=== PATIENT | female | born 1960 | race Caucasian/White ===

== ENCOUNTER 2020-01-07 07:05 | Outpatient (CLI) | payer SELFPAY | END 2020-01-07 07:06 | disposition EMS.NT | LOC: EMS 07:05 | PROVIDERS: ATTEND Surgery | DX: R13.10 Dysphagia, unspecified (principal) ==

== ENCOUNTER 2021-01-27 09:11 | Outpatient (CLI) | payer BC | END 2021-01-27 09:12 | disposition critical access hospital (66) | LOC: EMS 09:11 | DX: R11.0 Nausea (principal); R27.0 Ataxia, unspecified | CPT/HCPCS: A0425; A0429 ==

== ENCOUNTER 2021-01-27 09:53 | Emergency (ER) | payer BC ==
--- NOTE | 2021-01-27 10:47 | CT Report ---
PROCEDURE: HEAD WO INDICATIONS: nausea, headache, sensation of imbalance TECHNIQUE: Noncontrast 4.5 mm thick angled axial sections acquired from the foramen magnum to the vertex. For r adiation dose reduction, the following was used: automated exposure control, adjustment of mA and/or kV according to patient size. COMPARISON: None. FINDINGS: Image quality: Excellent. CSF spaces: Basal cisterns are patent. No extra-axial fluid collections. Ventricles are normal in size and shape. Brain: No midline shift. No intracranial masses or hemorrhage. Mohr-white matter interface is norm al. Skull and face: Calvarium and visualized facial bones are intact, without suspicious lesions. Sinuses: Visualized sinuses and mastoids are clear. IMPRESSION: Unremarkable noncontrast head CT. No findings of acute hemorrhage or mass effect can be seen. If it would be helpful for clinical management decision making, please consider a dedicated brain MRI (without and with contrast) for further evaluation (assuming that there is no contraindication). No displaced calvarial fracture is seen. Reviewed by: Jefe Armenta MD on 01/27/2021 9:45 AM KEE[place] Approved by: Jefe Armenta MD on 01/27/2021 9:45 AM KEE[place] Station ID: [id number]
--- OUTSIDE RECORDS SUMMARY | 2021-01-27 10:58 | EXTERNAL MEDICAL SUMMARY RPT | Continuity of Care Document ---
:1960 Demographics Phone Unavailable Preferred Language Unknown Marital Status Unknown Moravian Affiliation Unknown Race Unknown Ethnic Group Unknown Author Organization [facility] Address [address] [phone] Phone Social History date description facility [phone]
[2021-01-27 10:59] LABS: BASOPHILS # (AUTO) 0.1 10^3/uL (0.0-0.1); BASOPHILS % (AUTO) 0.6 %; EOSINOPHILS # (AUTO) 0.5 10^3/uL (0.0-0.7); EOSINOPHILS % (AUTO) 5.4 %; HCT - HEMATOCRIT 43.6 % (37.0-47.0); HGB - HEMOGLOBIN 13.9 g/dL (12.0-16.0); LYMPHOCYTES # (AUTO) 1.1 10^3/uL (1.5-3.5); LYMPHOCYTES % (AUTO) 12.2 %; MEAN CORPUSCULAR HEMOGLOBIN 29.8 pg (27.0-31.0); MEAN CORPUSCULAR HGB CONC 31.9 g/dL (32.0-36.0); MEAN CORPUSCULAR VOLUME 93.6 fL (81.0-99.0); MONOCYTES # (AUTO) 0.6 10^3/uL (0.0-1.0); MONOCYTES % (AUTO) 7.1 %; NEUTROPHILS # (AUTO) 6.7 10^3/uL (1.5-6.6); NEUTROPHILS % (AUTO) 74.4 %; PLT - PLATELET COUNT 349 10^3/uL (130-450); RED BLOOD COUNT 4.66 10^6/uL (4.20-5.40); RED CELL DISTRIBUTION WIDTH 13.3 % (12.0-15.0)
[2021-01-27] MEDS ORDERED: IOPAMIDOL-300 100 ML VIAL ONE (10:59)
[2021-01-27 11:21] LABS: ALBUMIN 5.1 g/dL (3.2-5.5); ALBUMIN/GLOBULIN RATIO 1.4 (1.0-2.2); BILIRUBIN,TOTAL 0.7 mg/dL (0.2-1.0); CALCIUM 9.8 mg/dL (8.5-10.3); CREATININE 0.6 mg/dL (0.4-1.0); POTASSIUM 4.1 mmol/L (3.5-5.0); TOTAL PROTEIN 8.7 g/dL (6.7-8.2)
--- NOTE | 2021-01-27 12:22 | CT Report ---
PROCEDURE: ANGIO HEAD W/WO INDICATIONS: ataxia, blurry vision, headache CONTRAST: IV CONTRAST: Isovue 300 ml: 80 PO CONTRAST: *NO PO CONTRAST TECHNIQUE: After the administration of intravenous contrast, 1 mm thick sections acquired through the [place] of [place]. Postcontrast 4.5 mm thick sections then re-acquired from the foramen magnum to the vertex. 3-dimensional rpbfzsi-nmisrzdwi-gvcnuigzoo (MIP) and/or volume rendering reformats were acquired of t central intracranial vasculature. For radiation dose reduction, the following was used: automate d exposure control, adjustment of mA and/or kV according to patient size. COMPARISON: CT head 01/27/2021 at 1035 hours. FINDINGS: Image quality: Excellent. Anterior circulation: Intracranial internal carotid arteries are normal in size and flow. The flow within the paired anterior cerebral arteries is normal and symmetric. The flow within the middle cer ebral arteries is normal and symmetric. The anterior communicating artery is seen. No aneurysms are seen. Posterior circulation: Visualized portions of the vertebral arteries demonstrate normal caliber, and join to form a normal appearing basilar artery. Flow within the posterior cerebral arteries is norm al and symmetric. No aneurysms are seen. Dural sinuses demonstrate normal postcontrast enhancement. CSF spaces: Ventricles are normal in size and shape. Basal cisterns are patent. No extra-axial flu id collections. Brain: No midline shift. No intracranial bleeds or masses. Mohr-white matter interface appears int act. Skull and face: Calvarium and facial bones appear intact, without suspicious lesions. Sinuses: Visualized sinuses and mastoids are clear. IMPRESSION: 1. No acute intracranial disease process. 2. No large vessel occlusion, vascular stenosis, vascular dissection or aneurysm. Reviewed by: Jena Rosa MD, PhD on 01/27/2021 12:21 PM PDT Approved by: Jena Rosa MD, PhD on 01/27/2021 12:21 PM PDT Station ID: [id number]
--- NOTE | 2021-01-27 12:25 | CT Report ---
PROCEDURE: ANGIO NECK W INDICATIONS: ataxia, headache, blurry vision yesterday CONTRAST: IV CONTRAST: Isovue 300 ml: 80 PO CONTRAST: *NO PO CONTRAST TECHNIQUE: After the administration of intravenous contrast, 1.5 mm axial sections acquired from the aortic arch to the [place] of [place]. Coronal 3-D maximum intensity projection (MIP) and/or volume rendering ref ormats were then performed. For radiation dose reduction, the following was used: automated exposur e control, adjustment of mA and/or kV according to patient size. COMPARISON: None. FINDINGS: Image quality: Excellent. Carotid system: The great vessels demonstrate a conventional anatomy as they arise from the aortic a rch. The origins of the common carotid arteries appear patent. The common carotid arteries demonstr ate normal calibers and courses. The bifurcation regions appear normal bilaterally. The internal ca rotid arteries demonstrate normal caliber and course. Posterior circulation: The origins of the vertebral arteries appear patent. The more superior porti ons of the vertebral arteries demonstrate normal course and caliber. They join to form a normal appe aring basilar artery. Soft tissues: Visualized neck soft tissues demonstrate no suspicious abnormalities. The thyroid gla nd is normal in size. Bones: No suspicious bony lesions. Spine Visualized cervical spine appears normally aligned. IMPRESSION: No large vessel occlusion, vascular stenosis, vascular dissection or aneurysm. The estimate of stenosis included in the report of the imaging study was calculated using the NASCET method Reviewed by: Jena Rosa MD, PhD on 01/27/2021 12:24 PM PDT Approved by: Jena Rosa MD, PhD on 01/27/2021 12:24 PM PDT Station ID: [id number]
[2021-01-27] MEDS ORDERED: IOPAMIDOL-300 100 ML VIAL IVP ONE (13:34)
[2021-01-27 13:35] VITALS: BP 147/92
--- NOTE | 2021-01-27 13:43 | ED Physician Documentation ---
History of Present Illness - Stated complaint Stated Complaint: NAUSEA/HEADACHE - Chief complaint Chief Complaint: Neuro - History obtained from History obtained from: Patient - Additonal information Additional information: 60yF with pmh htn presents with recent concussion last saturday after falling on L side with +HT and no LOC. Pt reports since that time she has had progressively worsening symptoms. she was seen once by HCW and dx with concussion. Patient endorses intermittent mild frontal HENLEY, nausea, as well as episode of unsteadiness while walking this morning. She does endorse brief remitting blurring of vision yesterday. denies vomiting, lightheadedness, confusion, focal weakness or sensory loss, difficulty with speech. Review of Systems Ten Systems: 10 systems reviewed and negative GI: reports: Nausea. denies: Vomiting Musculoskeletal: denies: Neck pain Neurologic: reports: Headache, Head injury. denies: Focal weakness, Numbness, Difficulty speaking PD PAST MEDICAL HISTORY - Past Medical History Past Medical History: No - Past Surgical History Past Surgical History: Yes Derm: Skin cancer surgery - Present Medications Home Medications: Ambulatory Orders Medication Instructions Recorded Confirmed No Known Home Medications 01/27/21 01/27/21 - Allergies Allergies/Adverse Reactions: Allergies Allergy/AdvReac Type Severity Reaction Status Date / Time Penicillins AdvReac Hives Verified 01/27/21 10:18 Sulfa (Sulfonamide AdvReac Hives Verified 01/27/21 10:18 Antibiotics) - Social History Does the pt smoke?: No Smoking Status: Never smoker Does the pt drink ETOH?: No Does the pt have substance abuse?: No - Immunizations Immunizations are current?: Yes - POLST Patient has POLST: No PD ED PE NORMAL - Vitals Vital signs reviewed: Yes - General General: Alert and oriented X 3, No acute distress, Well developed/nourished - HEENT HEENT: Atraumatic, PERRL, EOMI - Neck Neck: Supple, no meningeal sign - Cardiac Cardiac: RRR - Respiratory Respiratory: No respiratory distress, Clear bilaterally - Abdomen Abdomen: Non tender, Non distended - Derm Derm: Normal color, Warm and dry - Extremities Extremities: No deformity - Neuro Neuro: Alert and oriented X 3, 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 normal cerebellar testing and strength) - Psych Psych: Other (anxious mood and affect) Results - Vitals Vitals: Vital Signs - 24 hr 01/27/21 01/27/21 01/27/21 09:53 10:00 12:25 Temperature 36.8 C Heart Rate 99 84 87 Respiratory 18 16 17 Rate Blood Pressure 167/67 H 156/83 H 141/77 H O2 Saturation 99 99 98 01/27/21 13:33 Temperature 97.7 C H Heart Rate 84 Respiratory 16 Rate Blood Pressure 147/92 H O2 Saturation 99 Oxygen O2 Source Room air - Labs Labs: Laboratory Tests 01/27/21 01/27/21 10:53 10:53 WBC 9.0 RBC 4.66 Hgb 13.9 Hct 43.6 MCV 93.6 MCH 29.8 MCHC 31.9 L RDW 13.3 Plt Count 349 MPV 10.0 Neut # (Auto) 6.7 H Lymph # (Auto) 1.1 L Randolph # (Auto) 0.6 Eos # (Auto) 0.5 Baso # (Auto) 0.1 Absolute Nucleated RBC 0.00 Nucleated RBC % 0.0 Sodium 139 Potassium 4.1 Chloride 101 Carbon Dioxide 25 Anion Gap 13.0 BUN 15 Creatinine 0.6 Estimated GFR (MDRD) 102 Glucose 124 H Calcium 9.8 Total Bilirubin 0.7 AST 25 ALT 20 Alkaline Phosphatase 67 Total Protein 8.7 H Albumin 5.1 Globulin 3.6 Albumin/Globulin Ratio 1.4 Lipase 30 PD MEDICAL DECISION MAKING - ED course ED course: discussed CT results with patient. Post concussive syndrome vs stroke etiology. Stroke unlikely given lack of focal deficits and negative CT. Discussed with patient and offered inpatient stay for MRI workup, however she would like to follow up with her PMD. education given about concussion symptoms and treatment. strict return precautions given. Departure - Departure Disposition: 01 Home, Self Care Clinical Impression: Post concussive syndrome, Hypertension Condition: Good Instructions: Concussion, ED Head Injury Closed Comments: You were seen in the emergency department for unsteadiness, headaches, blurring of vision, and nausea. All of these symptoms are consistent with concussion. Your head CT and CT angio of your head and neck did not show any concerning features. Please return to the emergency department if you experience any new or worsening symptoms or have other concerns. If you have persistent symptoms then you may need to follow-up with your primary doctor for MRI. Please also follow-up with your primary doctor in regards to your high blood pressure. You may need to start a blood pressure medication in future if you continue to have high blood pressure. Discharge Date/Time: 01/27/21 13:54
== END 2021-01-27 13:54 | disposition home or self-care (01) ==
LOC: EDUNIT# → ED 09:53
DX: F07.81 Postconcussional syndrome (principal); I10 Essential (primary) hypertension
CPT/HCPCS: 36415; 70450; 70496; 70498; 80053; 83690; 85025; 93005; 99284; Q9967

== ENCOUNTER 2021-01-30 20:35 | Outpatient (CLI) | payer BC | END 2021-01-30 20:36 | disposition critical access hospital (66) | LOC: EMS 20:35 | DX: R26.81 Unsteadiness on feet (principal); R20.2 Paresthesia of skin | CPT/HCPCS: A0425; A0429 ==

== ENCOUNTER 2021-01-30 21:22 | Emergency (ER) | payer BC ==
--- OUTSIDE RECORDS SUMMARY | 2021-01-30 21:42 | EXTERNAL MEDICAL SUMMARY RPT | Continuity of Care Document ---
:1960 Demographics Phone Unavailable Preferred Language Unknown Marital Status Unknown Restorationism Affiliation Unknown Race Unknown Ethnic Group Unknown Author Organization [place] Address [address] [phone] Phone Social History date description facility [phone]
[2021-01-30] MEDS ORDERED: SODIUM CHLORIDE 0.9% 1,000 ML IV STA (22:46)
--- NOTE | 2021-01-30 22:47 | ED Physician Documentation ---
History of Present Illness - Stated complaint Stated Complaint: VERTIGO - Chief complaint Chief Complaint: Neuro - History obtained from History obtained from: Patient - History of Present Illness Timing: How many days ago (5) - Additonal information Additional information: dizziness, swaying, difficulty concentrating, headache, sinus pressure after concussion. 60-year-old female reports that 8 days ago she was walking along when she caught her shoelace on a piece of rebar that was sticking up about 3 inches off the ground. She tripped forward she does not recall hitting her head. She injured her left elbow. She subsequently developed a headache and following that some blurred vision while she was driving and she felt she was having enough difficulty concentrating and that she did not want to go to work. She went in to see the emergency department physician at another emergency department and the thought was she had likely a concussion with a whip lash like injury and no imaging was indicated. Subsequent to that the patient developed more symptoms including nausea, dizziness, swaying and difficulty concentrating. She also notes some diarrhea. For 2 days. She eventually came to the emergency department here at [facility] and saw Dr. Lomas who did an extensive work- up to include a CTA of the head and neck with concerns of a potential stroke versus concussion and this work-up was negative.The patient was offered admission to the hospital for MRI scanning and she declined. She subsequently has had persistence of her symptoms presents to the emergency department today with persistent dizziness and a swaying feeling as well as some pain to the left maxillary sinus area. She does not have a cough fever or nasal drainage. Her headache is mild in nature. Review of Systems Constitutional: denies: Fever Eyes: reports: Other (transient blurring 2 days ago while driving). denies: Decreased vision Ears: denies: Ear pain Nose: reports: Sinus pressure / pain (To the left maxillary sinus). denies: Rhinorrhea / runny nose, Congestion Throat: denies: Dental pain / toothache, Sore throat Cardiac: denies: Chest pain / pressure, Palpitations Respiratory: denies: Dyspnea, Cough GI: reports: Nausea, Diarrhea. denies: Abdominal Pain, Vomiting, Constipation : denies: Dysuria, Frequency Skin: denies: Rash Musculoskeletal: denies: Neck pain, Back pain, Extremity pain Neurologic: reports: Other (tingling in the legs.). denies: Generalized weakness, Focal weakness, Numbness PD PAST MEDICAL HISTORY - Past Medical History Past Medical History: Yes Cardiovascular: Hypertension - Past Surgical History Past Surgical History: Yes Derm: Skin cancer surgery - Present Medications Home Medications: Ambulatory Orders Medication Instructions Recorded Confirmed No Known Home Medications 01/27/21 01/30/21 - Allergies Allergies/Adverse Reactions: Allergies Allergy/AdvReac Type Severity Reaction Status Date / Time Penicillins AdvReac Hives Verified 01/30/21 21:25 Sulfa (Sulfonamide AdvReac Hives Verified 01/30/21 21:25 Antibiotics) - Social History Does the pt smoke?: No Smoking Status: Never smoker Does the pt drink ETOH?: No Does the pt have substance abuse?: No - Immunizations Immunizations are current?: Yes - POLST Patient has POLST: No PD ED PE NORMAL - Vitals Vital signs reviewed: Yes (hypertensive mild ) - General General: Alert and oriented X 3, No acute distress, Well developed/nourished - HEENT HEENT: Atraumatic, PERRL, EOMI, Other (left TM is clear the right is obscured by cerumen. 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, No motor deficit, No sensory deficit, Normal speech Eye Opening: Spontaneous Motor: Obeys Commands Verbal: Oriented GCS Score: 15 - Psych Psych: Normal mood, Normal affect Results - Vitals Vitals: Vital Signs - 24 hr 01/30/21 01/30/21 01/30/21 21:25 21:28 23:16 Temperature 37.0 C 37 C 37 C Heart Rate 84 84 75 Respiratory 19 16 16 Rate Blood Pressure 158/77 H 158/77 H 143/74 H O2 Saturation 99 99 100 01/31/21 01/31/21 01/31/21 00:08 01:22 01:23 Temperature 37 C 37.1 C 37.1 C Heart Rate 72 71 71 Respiratory 17 16 16 Rate Blood Pressure 124/70 125/71 125/71 O2 Saturation 99 100 100 Oxygen O2 Source Room air - Labs Labs: Laboratory Tests 01/30/21 01/30/21 01/30/21 21:49 22:56 22:56 WBC 8.0 RBC 4.28 Hgb 12.7 Hct 39.4 MCV 92.1 MCH 29.7 MCHC 32.2 RDW 13.1 Plt Count 332 MPV 9.8 Neut # (Auto) 4.6 Lymph # (Auto) 2.0 Starke # (Auto) 0.8 Eos # (Auto) 0.5 Baso # (Auto) 0.0 Absolute Nucleated RBC 0.00 Nucleated RBC % 0.0 Sodium 139 Potassium 4.0 Chloride 102 Carbon Dioxide 26 Anion Gap 11.0 BUN 13 Creatinine 0.5 Estimated GFR (MDRD) 126 Glucose 114 H Calcium 9.6 Total Bilirubin 0.6 AST 24 ALT 18 Alkaline Phosphatase 60 Total Protein 8.0 Albumin 4.8 Globulin 3.2 Albumin/Globulin Ratio 1.5 Lipase 34 Urine Color YELLOW Urine Clarity CLEAR Urine pH 6.0 Ur Specific [place] <=1.005 Urine Protein NEGATIVE Urine Glucose (UA) NEGATIVE Urine Ketones NEGATIVE Urine Occult Blood NEGATIVE Urine Nitrite NEGATIVE Urine Bilirubin NEGATIVE Urine Urobilinogen 0.2 (NORMAL) Ur Leukocyte Esterase NEGATIVE Ur Microscopic Review NOT INDICATED Urine Culture Comments NOT INDICATED Procedures - IVC sono (time) 2240 Bedside IVC sono: IVC measures (cm) (1.02), IVC collapsed c insp (cm) (complete), Dehydration (est 1-2 liter deficit) PD MEDICAL DECISION MAKING - ED course Complexity details: reviewed old records, reviewed results, re-evaluated patient, considered differential, d/w patient ED course: 60-year-old female with an odd history of a jarring injury followed by concussion-like symptoms with a gradual onset. The symptoms did not make sense for a stroke in their onset or in their nature. They did make sense for concussion with the jarring injury the patient had, but again with a gradual onset. I reviewed specifically the imaging done 3 days ago. We did find the patient was mildly dehydrated on interrogation the inferior vena cava and she was administered intravenous saline. Her blood work is unremarkable. I have recommended to the patient that she follow-up with her primary for evaluation further with MRI scanning. I did not find a reason to place the patient into [facility] as I do not believe keeping her here overnight for for MRI scanning would gear changer. I did indicate to the patient that concussion management can be frustrating in that the recovery can be slow. Her son presented to the ED to take her home and we reviewed the findings and expectations including the need to perform the MRI as her history is not entirely consistent. Departure - Departure Disposition: 01 Home, Self Care Clinical Impression: Post concussive syndrome Condition: Stable Instructions: ED Head Injury Closed Follow-Up: AJ QUISPE MD [Primary Care Provider] - Comments: It appears the symptoms you are having are consistent with a postconcussive syndrome. These frequently will cause an issue with difficulty concentrating dizziness nausea headache and the last thing to improve usually is a headache. 30% of people who are not driving after a concussion will still not be driving 1 month later. This can be frustrating can take a long time to recover from. We are still missing a component of our work-up here which would be the MRI of the brain. My recommendation is to have this study done tomorrow at your follow-up with your primary care doctor. I do not believe there is anything specific we would do in the hospital [facility] if you were admitted and I believe it is safe for you to go home. It is imperative to get the MRI study done as alternative etiologies for your symptomatology are possible. Discharge Date/Time: 01/31/21 01:31
[2021-01-30 23:02] LABS: BASOPHILS % (AUTO) 0.5 %; EOSINOPHILS # (AUTO) 0.5 10^3/uL (0.0-0.7); EOSINOPHILS % (AUTO) 6.3 %; HCT - HEMATOCRIT 39.4 % (37.0-47.0); HGB - HEMOGLOBIN 12.7 g/dL (12.0-16.0); LYMPHOCYTES % (AUTO) 25.1 %; MEAN CORPUSCULAR HEMOGLOBIN 29.7 pg (27.0-31.0); MEAN CORPUSCULAR HGB CONC 32.2 g/dL (32.0-36.0); MEAN CORPUSCULAR VOLUME 92.1 fL (81.0-99.0); MEAN PLATELET VOLUME 9.8 fL (7.9-10.8); MONOCYTES # (AUTO) 0.8 10^3/uL (0.0-1.0); MONOCYTES % (AUTO) 9.7 %; NEUTROPHILS # (AUTO) 4.6 10^3/uL (1.5-6.6); NEUTROPHILS % (AUTO) 58.3 %; PLT - PLATELET COUNT 332 10^3/uL (130-450); RED BLOOD COUNT 4.28 10^6/uL (4.20-5.40); RED CELL DISTRIBUTION WIDTH 13.1 % (12.0-15.0)
[2021-01-30 23:08] LABS: BILIRUBIN,URINE NEGATIVE (NEGATIVE); CLARITY,URINE CLEAR (CLEAR); GLUCOSE, URINE (UA) NEGATIVE (NEGATIVE); KETONES,URINE (UA) NEGATIVE (NEGATIVE); LEUKOCYTE ESTERASE, URINE NEGATIVE (NEGATIVE); NITRITE,URINE NEGATIVE (NEGATIVE); OCCULT BLOOD,URINE NEGATIVE (NEGATIVE); PROTEIN,URINE NEGATIVE (NEGATIVE); UROBILINOGEN,URINE 0.2 (NORMAL) E.U./dL (NORMAL)
[2021-01-30 23:15] LABS: ALBUMIN 4.8 g/dL (3.2-5.5); ALBUMIN/GLOBULIN RATIO 1.5 (1.0-2.2); BILIRUBIN,TOTAL 0.6 mg/dL (0.2-1.0); CALCIUM 9.6 mg/dL (8.5-10.3); CREATININE 0.5 mg/dL (0.4-1.0)
[2021-01-31 01:23] VITALS: BP 125/71
== END 2021-01-31 01:31 | disposition home or self-care (01) ==
LOC: EDUNIT# → ED 21:22
DX: F07.81 Postconcussional syndrome (principal); E86.0 Dehydration; R51.9 Headache, unspecified; R19.7 Diarrhea, unspecified; H61.21 Impacted cerumen, right ear; I10 Essential (primary) hypertension
CPT/HCPCS: 36415; 80053; 81001; 81003; 83690; 85025; 87086; 99283; 99284

== ENCOUNTER 2021-01-31 09:44 | Outpatient (CLI) | payer BC | END 2021-01-31 09:45 | disposition critical access hospital (66) | LOC: EMS 09:44 | DX: R63.1 Polydipsia (principal); R19.7 Diarrhea, unspecified | CPT/HCPCS: A0425; A0427 ==

== ENCOUNTER 2021-01-31 10:26 | Emergency (ER) | payer BC ==
--- OUTSIDE RECORDS SUMMARY | 2021-01-31 11:01 | EXTERNAL MEDICAL SUMMARY RPT | Continuity of Care Document ---
:1960 Demographics Phone Unavailable Preferred Language Unknown Marital Status Unknown Orthodox Affiliation Unknown Race Unknown Ethnic Group Unknown Author Organization [place] Address [address] [phone] Phone Social History date description facility [phone]
--- NOTE | 2021-01-31 11:48 | ED Physician Documentation ---
PD HPI HEAD INJURY - Stated complaint Stated Complaint: DIZZY - Chief complaint Chief Complaint: Neuro - History obtained from History obtained from: Patient - History of Present Illness Mechanism of head injury: Fell Timing - onset: How many weeks ago (2) Location of injury: Back Quality of pain: Aching Associated symptoms: Other (having feeling of "swaying in my head" and dizziness with head movement. Has had symptoms since fall with head injury 2 weeks ago. Seen 9 days ago with headache and dizziness. Had head CT and angio which were normal. Dx with concussion. Has had continued wax/wane symptoms. seen again yest.). No: LOC Symptoms worsen with: Movement Contributing factors: No: Anticoagulated, Intoxicated Recently seen: Emergency Dept (seen 9 days ago Dx concussion and again last evening with dizziness/lightheaded and had IV fluids/labs with Dx dehydation.) Review of Systems Constitutional: denies: Fever, Chills Eyes: denies: Loss of vision, Decreased vision Nose: denies: Rhinorrhea / runny nose, Congestion Throat: denies: Sore throat Cardiac: denies: Chest pain / pressure, Palpitations Respiratory: denies: Cough GI: reports: Nausea (with the dizziness). denies: Abdominal Pain, Vomiting, Diarrhea Skin: denies: Abrasion (s), Laceration (s) Neurologic: reports: Headache (intermittent, but feeling of pressure more the past several days.), Head injury. denies: Focal weakness, Numbness, Difficulty speaking PD PAST MEDICAL HISTORY - Past Medical History Cardiovascular: Hypertension Respiratory: None Endocrine/Autoimmune: None - Past Surgical History Past Surgical History: Yes Derm: Skin cancer surgery - Present Medications Home Medications: Ambulatory Orders Medication Instructions Recorded Confirmed Loperamide [Imodium] 2 mg PO Q6H PRN #16 01/31/21 Meclizine HCl [Antivert] 1 tablet PO Q6H PRN #30 tab 01/31/21 - Allergies Allergies/Adverse Reactions: Allergies Allergy/AdvReac Type Severity Reaction Status Date / Time Penicillins AdvReac Hives Verified 01/31/21 10:42 Sulfa (Sulfonamide AdvReac Hives Verified 01/31/21 10:42 Antibiotics) - Social History Does the pt smoke?: No Smoking Status: Never smoker Does the pt drink ETOH?: No Does the pt have substance abuse?: No - Immunizations Immunizations are current?: Yes - POLST Patient has POLST: No PD ED PE NORMAL - Vitals Vital signs reviewed: Yes - General General: Alert and oriented X 3, No acute distress, Well developed/nourished, Other (seems some anxious) - HEENT HEENT: Atraumatic, PERRL, EOMI (mild nystagmus to the left) - Neck Neck: Supple, no meningeal sign, No bony TTP, No adenopathy - Cardiac Cardiac: RRR, No murmur - Respiratory Respiratory: Clear bilaterally - Abdomen Abdomen: Soft, Non tender - Derm Derm: Normal color, Warm and dry - Neuro Neuro: Alert and oriented X 3, airport ramp attendant 2-12 intact, No motor deficit, No sensory deficit, Normal speech, Other (checked ambulation, Romberg, and cerebellar testing with normal exam. ) Results - Vitals Vitals: Vital Signs - 24 hr 01/31/21 01/31/21 01/31/21 10:42 12:07 14:06 Temperature 36.9 C 36.7 C Heart Rate 88 85 79 Respiratory 18 16 16 Rate Blood Pressure 166/90 H 156/82 H 137/71 H O2 Saturation 99 99 100 Oxygen O2 Source Room air - Labs Labs: Laboratory Tests 01/31/21 12:22 POC Whole Bld Glucose 98 - Rads (name of study) head CT Radiology: Prelim report reviewed (no acute process), See rad report PD MEDICAL DECISION MAKING - ED course Complexity details: considered differential (seems like some concussive labrynthitis versus post concussive head injury. Does not seem cerebellar symptoms per se. Got head CT to ensure not delayed subdural from prior head injury. ), d/w patient Departure - Departure Disposition: 01 Home, Self Care Clinical Impression: Dizziness, Post concussive syndrome Condition: Stable Record reviewed to determine appropriate education?: Yes Instructions: ED Concussion Follow-Up: AJ QUISPE MD [Primary Care Provider] - Prescriptions: Meclizine HCl [Antivert] 1 tablet PO Q6H PRN #30 tab PRN Reason: Vertigo Loperamide [Imodium] 2 mg PO Q6H PRN #16 PRN Reason: Diarrhea Comments: Your blood test had been good from last night so we did not repeat them. At this point, I would suggest staying well-hydrated. For the dizziness feeling you can use motion sickness medicine such as meclizine every 6 hours if needed to help with the symptoms. Otherwise try to modulate your level lack of activity based on your symptoms of headache or lightheadedness or dizziness. Sometimes concussion symptoms can last for several weeks. Follow-up with your primary care later this week, call for an appointment. Regarding the diarrhea, bring a stool sample of the diarrhea to your primary care or to the lab here for culture studies to evaluate for particular causes of the diarrhea. Meanwhile you can use Imodium every 6 hours if needed for the diarrhea. Discharge Date/Time: 01/31/21 14:53
[2021-01-31] MEDS ORDERED: MECLIZINE 12.5 MG TABLET PO STA (12:16)
[2021-01-31] MEDS ORDERED: LACTATED RINGERS 1,000 ML IV STA (12:16)
--- NOTE | 2021-01-31 13:30 | CT Report ---
PROCEDURE: HEAD WO INDICATIONS: Persistent concussive symptoms TECHNIQUE: Noncontrast 4.5 mm thick angled axial sections acquired from the foramen magnum to the vertex. For r adiation dose reduction, the following was used: automated exposure control, adjustment of mA and/or kV according to patient size. COMPARISON: 01/27/2021 CT angiogram head and head CT FINDINGS: Image quality: Excellent. CSF spaces: Basal cisterns are patent. No extra-axial fluid collections. Ventricles are normal in size and shape. Brain: No midline shift. No intracranial masses or hemorrhage. Mohr-white matter interface is norm al. Skull and face: Calvarium and visualized facial bones are intact, without suspicious lesions. Sinuses: Visualized sinuses and mastoids are clear. IMPRESSION: No acute intracranial pathology. Reviewed by: Cristopher Lerma MD on 01/31/2021 1:28 PM PDT Approved by: Cristopher Lerma MD on 01/31/2021 1:28 PM PDT Station ID: [id number]
[2021-01-31 14:07] VITALS: BP 137/71
== END 2021-01-31 14:53 | disposition home or self-care (01) ==
LOC: EDUNIT# → ED 10:26
DX: F07.81 Postconcussional syndrome (principal); R19.7 Diarrhea, unspecified; I10 Essential (primary) hypertension; I45.10 Unspecified right bundle-branch block
CPT/HCPCS: 70450; 93005; 99284; A9270; J7120; 87045; 87046; 87493

== ENCOUNTER 2021-02-04 14:20 | Emergency (ER) | payer BC ==
--- OUTSIDE RECORDS SUMMARY | 2021-02-04 14:24 | EXTERNAL MEDICAL SUMMARY RPT | Continuity of Care Document ---
:1960 Demographics Phone Unavailable Preferred Language Unknown Marital Status Unknown Jehovah'S Witness Affiliation Unknown Race Unknown Ethnic Group Unknown Author Organization [place] Address [address] [id number] Phone Social History date description facility [phone]
--- OUTSIDE RECORDS SUMMARY | 2021-02-04 14:28 | EXTERNAL MEDICAL SUMMARY RPT | Continuity of Care Document ---
:1960 Demographics Phone Unavailable Preferred Language Unknown Marital Status Unknown Alevism Affiliation Unknown Race Unknown Ethnic Group Unknown Author Organization [facility] Address [address] [id number] Phone Social History date description facility [phone]
[2021-02-04 14:34] VITALS: BP 156/83
[2021-02-04] MEDS ORDERED: PROPARACAINE 0.5% OPHTH DROPS 15 ML EACHEYE STA (14:36)
--- NOTE | 2021-02-04 14:45 | ED Physician Documentation ---
History of Present Illness - Stated complaint Stated Complaint: EYE PRESSURE, SENT BY PCP - Chief complaint Chief Complaint: General - History obtained from History obtained from: Patient - Additonal information Additional information: She had a fall with a head strike almost 2 weeks ago. Since then she has been having trouble with dizziness and headaches. She has been seen here several times, cranial imaging of the head was done twice and negative. Her symptoms are all improving but since yesterday she has had some mild eye pressure without vision changes and was referred in to check that out. Review of Systems Constitutional: denies: Fever, Chills Nose: denies: Rhinorrhea / runny nose Throat: denies: Sore throat Cardiac: denies: Chest pain / pressure, Palpitations PD PAST MEDICAL HISTORY - Past Medical History Cardiovascular: Hypertension Respiratory: None Endocrine/Autoimmune: None GI: None EXTRUSION FORMER: None : None HEENT: None Psych: None Musculoskeletal: None Derm: None - Past Surgical History Past Surgical History: Yes Derm: Skin cancer surgery - Present Medications Home Medications: Ambulatory Orders Medication Instructions Recorded Confirmed Loperamide [Imodium] 2 mg PO Q6H PRN #16 01/31/21 Meclizine HCl [Antivert] 1 tablet PO Q6H PRN #30 tab 01/31/21 - Allergies Allergies/Adverse Reactions: Allergies Allergy/AdvReac Type Severity Reaction Status Date / Time Penicillins AdvReac Hives Verified 02/04/21 14:34 Sulfa (Sulfonamide AdvReac Hives Verified 02/04/21 14:34 Antibiotics) - Social History Does the pt smoke?: No Smoking Status: Never smoker Does the pt drink ETOH?: No Does the pt have substance abuse?: No - Immunizations Immunizations are current?: Yes - POLST Patient has POLST: No PD ED PE NORMAL - Vitals Vital signs reviewed: Yes - General General: Alert and oriented X 3, No acute distress - HEENT HEENT: PERRL, EOMI, Other (Nikhil-Pen was 22 on the right, 24 on the left. She states she is always had some elevated intraocular pressures that have been managed expectantly by her bottle washer.) - Neck Neck: Supple, no meningeal sign, No bony TTP - Extremities Extremities: Other (She has a mild case of phlebitis of the left forearm from prior IV placement. No bony tenderness or limited range of motion.) - Neuro Neuro: Alert and oriented X 3, No motor deficit, No sensory deficit, Normal speech Results - Vitals Vitals: Vital Signs - 24 hr 02/04/21 14:26 Temperature 36.8 C Heart Rate 94 Respiratory 15 Rate Blood Pressure 156/83 H O2 Saturation 100 Oxygen O2 Source Room air Departure - Departure Disposition: Home, Self Care Clinical Impression: Eye pressure, Phlebitis, Post concussive syndrome Condition: Good Record reviewed to determine appropriate education?: Yes Instructions: ED Phlebitis Superficial Comments: As discussed, your intraocular pressures are very mildly elevated but given your history, my suspicion is it is in the range that your eye doctor he seen in the past. Specifically it was 22 on the right, 24 on the left. You should follow- up with your bottle washer or range manager in the next few weeks. Return if worsening in any way.
== END 2021-02-04 14:59 | disposition home or self-care (01) ==
LOC: ED 14:20
DX: H40.053 Ocular hypertension, bilateral (principal); F07.81 Postconcussional syndrome; T81.72XA Complication of vein following a procedure, not elsewhere classified, initial encounter; I80.8 Phlebitis and thrombophlebitis of other sites; Y84.8 Other medical procedures as the cause of abnormal reaction of the patient, or of later complication, without mention of misadventure at the time of the procedure; I10 Essential (primary) hypertension
CPT/HCPCS: 99282; 99284; J3490

== ENCOUNTER 2021-02-22 | Outpatient (CLI) | payer BC | END 2021-02-22 21:33 | disposition EMS.NT ==

== ENCOUNTER 2021-02-26 09:45 | Emergency (ER) | payer BC ==
[2021-02-26] MEDS ORDERED: ACETAMINOPHEN 325 MG TABLET PO STA (10:42)
--- NOTE | 2021-02-26 11:07 | CT Report ---
PROCEDURE: HEAD WO INDICATIONS: head pain, +HT, recent concussion TECHNIQUE: Noncontrast 4.5 mm thick angled axial sections acquired from the foramen magnum to the vertex. For r adiation dose reduction, the following was used: automated exposure control, adjustment of mA and/or kV according to patient size. COMPARISON: None. FINDINGS: Image quality: Excellent. CSF spaces: Basal cisterns are patent. No extra-axial fluid collections. Ventricles are normal in size and shape. Brain: No midline shift. No intracranial masses or hemorrhage. Mohr-white matter interface is norm al. Skull and face: Calvarium and visualized facial bones are intact, without suspicious lesions. Sinuses: Visualized sinuses and mastoids are clear. IMPRESSION: No evidence of acute stroke, hemorrhage, or mass. Negative study. Reviewed by: Gil Pedroza MD on 02/26/2021 11:06 AM PDT Approved by: Gil Pedroza MD on 02/26/2021 11:06 AM PDT Station ID: [id number]
--- NOTE | 2021-02-26 11:54 | ED Physician Documentation ---
History of Present Illness - Stated complaint Stated Complaint: HEAD PX - Chief complaint Chief Complaint: Neuro - History obtained from History obtained from: Patient - Additonal information Additional information: 7-year-old woman with history of concussion a month ago presents with headache and intermittent dizziness since that time. She scraped her head a week and a half ago on the garage door and is concerned that she had a repeat head injury from this. Symptoms have been progressively worsening over the past week, improving today. Also with left eye and ear pressure and intermittent blurring of vision. She was seen by her primary MD and now has a referral for neurology. Review of Systems Neurologic: reports: Headache, Head injury, Other (dizziness). 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 OF DESIGN: None : None HEENT: None Psych: None Musculoskeletal: None Derm: None - Past Surgical History Past Surgical History: Yes Derm: Skin cancer surgery - Present Medications Home Medications: Ambulatory Orders Medication Instructions Recorded Confirmed No Known Home Medications 02/26/21 02/26/21 - Allergies Allergies/Adverse Reactions: Allergies Allergy/AdvReac Type Severity Reaction Status Date / Time Penicillins AdvReac Hives Verified 02/26/21 09:59 Sulfa (Sulfonamide AdvReac Hives Verified 02/26/21 09:59 Antibiotics) - Social History Does the pt smoke?: No Smoking Status: Never smoker Does the pt drink ETOH?: No Does the pt have substance abuse?: No - Immunizations Immunizations are current?: No Immunizations: Other immun not current - POLST Patient has POLST: No PD ED PE NORMAL - Vitals Vital signs reviewed: Yes - General General: Alert and oriented X 3, No acute distress, Well developed/nourished - HEENT HEENT: Atraumatic, PERRL, EOMI, Moist mucous membranes, Pharynx benign - Neck Neck: Supple, no meningeal sign - Derm Derm: Normal color, Warm and dry - Extremities Extremities: No deformity - Neuro Neuro: Alert and oriented X 3, 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 Her head is atraumatic today and her head CT is normal. Neurological exam is normal as well. She is planning to follow-up with neurology for her postconcussive symptoms. Return precautions given. Departure - Departure Disposition: 01 Home, Self Care Clinical Impression: Concussion Condition: Stable Instructions: Concussion Dc Comments: You are seen in the emergency department for concussion symptoms. Please follow-up with your neurologist and continue the conservative measures that we discussed. Return the emergency department if you have any new or worsening symptoms or other concerns.
[2021-02-26 12:06] VITALS: BP 138/79
== END 2021-02-26 12:13 | disposition home or self-care (01) ==
LOC: ED 09:45
DX: S06.0X9D Concussion with loss of consciousness of unspecified duration, subsequent encounter (principal); X58.XXXD Exposure to other specified factors, subsequent encounter
CPT/HCPCS: 99282; 99284

== ENCOUNTER 2021-03-21 11:57 | Emergency (ER) | payer BC ==
[2021-03-21 12:19] VITALS: BP 156/90
--- NOTE | 2021-03-21 12:23 | ED Physician Documentation ---
PD HPI HEAD INJURY - Stated complaint Stated Complaint: HEAD PX/STOMACH PX - Chief complaint Chief Complaint: Neuro - History obtained from History obtained from: Patient - History of Present Illness Mechanism of head injury: Other (she had fallen and jostled her head (not direct impact) 2 months ago and has had persistent headache, lightheaded, and some confusion with activity to varying degrees since, c/w concussion syndrome. Saw Neurologist and told to increase activity as tolerated.). No: Fell, Blow Timing - onset: Yesterday Location of injury: Right, Front Quality of pain: Throbbing, Aching Associated symptoms: Nausea / vomiting (mild nausea). No: LOC, AMS Symptoms worsen with: No: Palpation Contributing factors: No: Anticoagulated, Intoxicated Similar symptoms before: Diagnosis (has had Dx post concussion headache and symptoms for 2 months. Had increased activity amount yesterday as had been feeling pretty good. Onset of headache, nausea, general weakness with more activity yesterday. Also noted gluteal/sacral pain without injury.) Review of Systems Constitutional: denies: Fever, Chills Nose: denies: Rhinorrhea / runny nose, Congestion Throat: denies: Sore throat Respiratory: denies: Cough Skin: denies: Rash, Lesions Neurologic: denies: Focal weakness, Numbness PD PAST MEDICAL HISTORY - Past Medical History Cardiovascular: Hypertension Respiratory: None Neuro: Head injury Endocrine/Autoimmune: None GI: None EVENTS SPECIALIST: None : None HEENT: None Psych: None Musculoskeletal: None Derm: None - Past Surgical History Past Surgical History: Yes Derm: Skin cancer surgery - Present Medications Home Medications: Ambulatory Orders Medication Instructions Recorded Confirmed SUMAtriptan [Imitrex] 25 mg PO Q4H PRN #5 tablet 03/21/21 - Allergies Allergies/Adverse Reactions: Allergies Allergy/AdvReac Type Severity Reaction Status Date / Time Penicillins AdvReac Hives Verified 03/21/21 12:19 Sulfa (Sulfonamide AdvReac Hives Verified 03/21/21 12:19 Antibiotics) - Social History Does the pt smoke?: No Smoking Status: Never smoker Does the pt drink ETOH?: No Does the pt have substance abuse?: No - Immunizations Immunizations are current?: No Immunizations: Other immun not current - POLST Patient has POLST: No PD ED PE NORMAL - Vitals Vital signs reviewed: Yes - General General: Alert and oriented X 3, Well developed/nourished, Other (anxious and talkative. ) - HEENT HEENT: Pharynx benign - Neck Neck: Supple, no meningeal sign, No adenopathy - Cardiac Cardiac: RRR, No murmur - Respiratory Respiratory: Clear bilaterally - Abdomen Abdomen: Soft, Non tender - Rectal Rectal: Pt declined - Derm Derm: Normal color, Warm and dry - Neuro Neuro: Alert and oriented X 3, No motor deficit, Normal speech Results - Vitals Vitals: Oxygen O2 Source Room air PD MEDICAL DECISION MAKING - ED course Complexity details: re-evaluated patient (I was going to do exam of gluteal and sacral area to ensure no abscess, hemorrhoids, etc. with one of the nurses, but patient declined. 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 Was most activity she had done since concussion. Also having gluteal/back pain that does not seem directly related, but likely muscular from sitting in car/etc. ), d/w patient Departure - Departure Disposition: 01 Home, Self Care Clinical Impression: Post concussion syndrome, Gluteal pain Condition: Stable Record reviewed to determine appropriate education?: Yes Instructions: ED Concussion Follow-Up: AJ QUISPE MD [Primary Care Provider] - Prescriptions: SUMAtriptan [Imitrex] 25 mg PO Q4H PRN #5 tablet PRN Reason: Headache Comments: Stay well-hydrated. Rest with moderate to light activity until follow-up with your neurologist next week. I wrote a work note for you and we can fax it to your place of business. Tylenol every 4-6 hours if needed for mild headaches. The more significant headache and nausea you had with driving last week may have still been postconcussive headache with symptoms brought on by under hydration, heat, and the activity. However as described, consideration would be postconcussive migraines which could be treated with an antimigraine medicine when they come about episodically severe. If you get a significant headache before you see your neurologist, try the sumatriptan and see if it helps significantly. I would not anticipate gluteal area pain from your concussion symptoms and so this may be muscular instead. Gentle stretching and light activity for the low back is good. Follow-up with your primary care if becomes more tender or symptomatic at the rectal area itself. Forms: Activity restrictions Discharge Date/Time: 03/21/21 13:30
== END 2021-03-21 13:30 | disposition home or self-care (01) ==
LOC: ED 11:57
DX: F07.81 Postconcussional syndrome (principal); M53.3 Sacrococcygeal disorders, not elsewhere classified; M54.9 Dorsalgia, unspecified; I10 Essential (primary) hypertension
CPT/HCPCS: 99282; 99284

== ENCOUNTER 2021-04-12 11:25 | Outpatient (CLI) | payer BC | END 2021-04-12 11:26 | disposition EMS.NT | LOC: EMS 11:25 | DX: R51.9 Headache, unspecified (principal); M79.601 Pain in right arm ==

== ENCOUNTER 2021-04-29 08:00 | Outpatient (CLI) | payer BC ==
[2021-04-29 15:47] LABS: BILIRUBIN,URINE NEGATIVE (NEGATIVE); GLUCOSE, URINE (UA) NEGATIVE (NEGATIVE); KETONES,URINE (UA) NEGATIVE (NEGATIVE); LEUKOCYTE ESTERASE, URINE NEGATIVE (NEGATIVE); NITRITE,URINE NEGATIVE (NEGATIVE); OCCULT BLOOD,URINE NEGATIVE (NEGATIVE); PROTEIN,URINE NEGATIVE (NEGATIVE); UROBILINOGEN,URINE 0.2 (NORMAL) E.U./dL (NORMAL)
[2021-04-29 15:59] LABS: CLARITY,URINE CLEAR (CLEAR)
== END 2021-04-29 23:59 | disposition home or self-care (01) ==
LOC: LAB.S 08:00
PROVIDERS: ATTEND Emergency Medicine
DX: R30.0 Dysuria (principal)
CPT/HCPCS: 81001; 81003; 87086

== ENCOUNTER 2021-06-11 06:31 | Outpatient (CLI) | payer BC | END 2021-06-11 06:32 | disposition EMS.NT | LOC: EMS 06:31 | DX: R21 Rash and other nonspecific skin eruption (principal) ==

== ENCOUNTER 2021-06-11 19:51 | Emergency (ER) | payer BC ==
[2021-06-11 20:10] VITALS: BP 165/95
--- NOTE | 2021-06-11 21:07 | ED Physician Documentation ---
History of Present Illness - Stated complaint Stated Complaint: FOLLOW UP CONCUSSION/VACCINE ADVERSE REACTION - Chief complaint Chief Complaint: General - History obtained from History obtained from: Patient - History of Present Illness Timing: Other (5 months) Pain level max: 4 Pain level now: 3 - Additonal information Additional information: Patient is a 61-year-old female who presents to the emergent department with multiple complaints. The first is that she had a concussion in January 2021. She states that since that time she has had intermittent headaches, has occasional tingling to her bilateral arms, hands, elbows. Sometimes her hands feel warm and then sometimes they feel cold. She also states occasionally her nose feels cold. She also states that sometimes she gets a tingling sensation in her lips. She also states that her right great toe has been red intermittently and also feels cold. She states that she did see a neurologist and was told that she could perform activities as tolerated, but finds that her symptoms worsen whenever she performs any physical activity, walks too long or uses screens for prolonged period of time. She has not had an MRI but has had several CT scans which were negative. She also states that she did have a second Covid vaccination about 2 weeks ago, had general body aches and malaise after that, but has had the tingling in her arms and legs intermittently as well as intermittent pain in her arms and legs. She thinks this could potentially be related to the Covid vaccination but is unsure. Has not had any repeat trauma. She also states that she was treated for a rash under her bilateral axillae. She states that she was told this was a fungal rash and it improved with clotrimazole/betamethasone. Nothing makes her symptoms better or worse. Review of Systems Ten Systems: 10 systems reviewed and negative Constitutional: denies: Fever, Chills Ears: denies: Ear pain Nose: denies: Rhinorrhea / runny nose, Congestion Throat: denies: Sore throat Cardiac: denies: Chest pain / pressure, Palpitations Respiratory: denies: Dyspnea, Cough GI: denies: Abdominal Pain, Vomiting, Diarrhea : denies: Dysuria, Frequency, Hesitancy Musculoskeletal: denies: Neck pain, Back pain Neurologic: denies: Headache PD PAST MEDICAL HISTORY - Past Medical History Cardiovascular: Hypertension Respiratory: None Neuro: Head injury Endocrine/Autoimmune: None GI: None 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 : None HEENT: None Psych: None Musculoskeletal: None Derm: None - Past Surgical History Past Surgical History: Yes Derm: Skin cancer surgery - Present Medications Home Medications: Ambulatory Orders Medication Instructions Recorded Confirmed SUMAtriptan [Imitrex] 25 mg PO Q4H PRN #5 tablet 03/21/21 Clotrimazole/Betamethasone Crm 1 applic TOP BID #1 tub 06/11/21 [Lotrisone Cream] - Allergies Allergies/Adverse Reactions: Allergies Allergy/AdvReac Type Severity Reaction Status Date / Time Penicillins AdvReac Hives Verified 06/11/21 20:10 Sulfa (Sulfonamide AdvReac Hives Verified 06/11/21 20:10 Antibiotics) - Social History Does the pt smoke?: No Smoking Status: Never smoker Does the pt drink ETOH?: No Does the pt have substance abuse?: No - Immunizations Immunizations are current?: No Immunizations: Other immun not current - POLST Patient has POLST: No PD ED PE NORMAL - Vitals Vital signs reviewed: Yes - General General: Alert and oriented X 3, No acute distress, Well developed/nourished - HEENT HEENT: PERRL, Moist mucous membranes - Neck Neck: Supple, no meningeal sign - Cardiac Cardiac: RRR, Strong equal pulses - Respiratory Respiratory: No respiratory distress, Clear bilaterally - Abdomen Abdomen: Soft, Non tender, Non distended - Back Back: No spinal TTP - Derm Derm: Warm and dry, Other (Mild light erythematous rash to the bilateral axilla. No scaling. No pustules. 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 This has been a prolonged course for her. She does see her neurologist again in about 10 days. She will likely benefit from physical therapy, Occupational Therapy and possibly physiatry. We will place her back on the clotrimazole for the rash in her armpits. Patient does not have any acute neurological deficits here. Brisk cap refill. Normal pulses. Normal neurological exam. Patient counseled regarding signs and symptoms for which I believe and urgent re-evaluation would be necessary. Patient with good understanding of and agreement to plan and is comfortable going home at this time This document was made in part using voice recognition software. While efforts are made to proofread this document, sound alike and grammatical errors may occur. Departure - Departure Disposition: Home, Self Care Clinical Impression: Postconcussive syndrome, Dermatitis Concussion Qualifiers: Encounter type: initial encounter Loss of consciousness presence/duration: without LOC Qualified Code(s): S06.0X0A - Concussion without loss of consciousness, initial encounter Condition: Good Instructions: TBI Headaches, TBI Improve Cognition, TBI Recovery Team Follow-Up: AJ QUISPE MD [Primary Care Provider] - Within 1 week Prescriptions: Clotrimazole/Betamethasone Crm [Lotrisone Cream] 1 applic TOP BID #1 tub Comments: Please follow-up with your neurologist for further care. They will likely want to send you to therapy for your concussion given that your symptoms have been ongoing for the last 5 months. Your neurologist may want to perform an MRI at this time as well to see if there are any underlying issues. We will also prescribe you a cream for the rash underneath your armpits. [facility] prescription was [facility] to [facility] Discharge Date/Time: 06/11/21 21:15
== END 2021-06-11 21:15 | disposition home or self-care (01) ==
LOC: ED 19:51
DX: F07.81 Postconcussional syndrome (principal); I10 Essential (primary) hypertension
CPT/HCPCS: 99282; 99284

== ENCOUNTER 2021-08-03 19:31 | Outpatient (CLI) | payer BC | END 2021-08-03 19:32 | disposition critical access hospital (66) | LOC: EMS 19:31 | DX: R00.2 Palpitations (principal); I10 Essential (primary) hypertension | CPT/HCPCS: A0425; A0427 ==

== ENCOUNTER 2021-08-03 20:13 | Observation (INO) | payer BC ==
--- NOTE | 2021-08-03 20:16 | ED Physician Documentation ---
PD HPI CHEST PAIN - Stated complaint Stated Complaint: PALPITATIONS/ A-FIB - History obtained from History obtained from: Patient - History of Present Illness Timing - onset: Today Timing - onset during: Rest. No: Exertion Timing - duration: Hours Timing - details: Gradual onset, Waxing and waning Quality: Tightness. No: Aching, Sharp Location: Substernal (feeling of heart irregularity, without pain per se.) Radiation: No: Neck, Back Improved by: No: Rest Worsened by: No: Exertion (has not really exerted herself today), Inspiration Associated symptoms: Feeling faint / dizzy, Palpitations. No: Shortness of air, Nausea, General Weakness, Cough Similar symptoms before: No diagnosis (has had similar feeling for 5-10 minutes at a time over the past couple of weeks.) Recently seen: Clinic (has had ongoing concussive symptoms for 6 months.) Review of Systems Constitutional: denies: Fever, Chills Nose: denies: Rhinorrhea / runny nose, Congestion Throat: denies: Sore throat Cardiac: reports: Palpitations. denies: Chest pain / pressure, Pedal edema, Calf pain Respiratory: denies: Dyspnea, Cough GI: denies: Abdominal Pain, Nausea, Vomiting, Diarrhea Neurologic: reports: Generalized weakness, Headache (for 6 months related to concussion.). denies: Near syncope, Syncope, Altered mental status Psychiatric: reports: Anxiety. denies: Depressed, Insomnia PD PAST MEDICAL HISTORY - Past Medical History Cardiovascular: Hypertension Respiratory: None Neuro: Head injury (6 months ago, with persistent headaches and trouble concentrating. Worse with exertion/activity. ) Endocrine/Autoimmune: None GI: None PEST CONTROL OPERATOR: None : None HEENT: None Psych: None Musculoskeletal: None Derm: None - Past Surgical History Past Surgical History: Yes Derm: Skin cancer surgery - Allergies Allergies/Adverse Reactions: Allergies Allergy/AdvReac Type Severity Reaction Status Date / Time Penicillins AdvReac Hives Verified 08/04/21 00:18 Sulfa (Sulfonamide AdvReac Hives Verified 08/04/21 00:18 Antibiotics) - Social History Does the pt smoke?: No Smoking Status: Never smoker Does the pt drink ETOH?: No Does the pt have substance abuse?: No - Immunizations Immunizations are current?: No Immunizations: Other immun not current - POLST Patient has POLST: No PD ED PE NORMAL - Vitals Vital signs reviewed: Yes - General General: Alert and oriented X 3, Well developed/nourished - HEENT HEENT: Moist mucous membranes, Pharynx benign - Neck Neck: Supple, no meningeal sign, No adenopathy - Cardiac Cardiac: No murmur, No rub. No: RRR (irregular and tachycardic) - Respiratory Respiratory: Clear bilaterally - Abdomen Abdomen: Soft, Non tender - Female Female : Deferred - Rectal Rectal: Deferred - Back Back: No CVA TTP - Derm Derm: Normal color, Warm and dry - Extremities Extremities: No edema, No calf tenderness / cord - Neuro Neuro: Alert and oriented X 3, No motor deficit, Normal speech Eye Opening: Spontaneous Motor: Obeys Commands Verbal: Oriented GCS Score: 15 Results - Vitals Vitals: Vital Signs - 24 hr 08/03/21 08/03/21 08/03/21 20:28 21:02 21:18 Temperature 36.3 C L Heart Rate 125 H 141 H 130 H Respiratory 13 13 Rate Blood Pressure 157/90 H 167/106 H 167/106 H O2 Saturation 98 99 08/03/21 08/03/21 08/03/21 21:25 21:27 21:30 Temperature Heart Rate 123 H Respiratory Rate Blood Pressure 173/122 H 150/74 H 165/78 H O2 Saturation 08/03/21 08/03/21 08/03/21 21:50 21:55 22:09 Temperature Heart Rate Respiratory Rate Blood Pressure 144/92 H 149/121 H 146/101 H O2 Saturation 08/03/21 08/03/21 22:51 23:22 Temperature Heart Rate 119 H 123 H Respiratory 14 13 Rate Blood Pressure 146/84 H 161/92 H O2 Saturation 100 100 Oxygen O2 Source Room air - EKG (time done) 20:54 Rate: Rate (enter#) (145) Rhythm: Atrial fibrillation Mio: Normal QRS: Normal Ischemia: ST depression (borderline diffusely, not patterned. ) Compare to prior EKG: Old EKG unavailable - Labs Labs: Laboratory Tests 08/03/21 08/03/21 08/03/21 20:45 20:45 20:55 WBC 11.6 H RBC 4.80 Hgb 14.3 Hct 44.5 MCV 92.7 MCH 29.8 MCHC 32.1 RDW 13.7 Plt Count 378 MPV 9.7 Neut # (Auto) Not Reportable Lymph # (Auto) Not Reportable [place] # (Auto) Not Reportable Eos # (Auto) Not Reportable Baso # (Auto) Not Reportable Absolute Nucleated RBC Not Reportable Total Counted 100 Band Neuts % (Manual) 0 Abnorm Lymph % (Manual) 0 Nucleated RBC % Not Reportable Neutrophils # (Manual) 7.1 H Lymphocytes # (Manual) 2.3 Monocytes # (Manual) 0.9 Eosinophils # (Manual) 1.3 H Basophils # (Manual) 0.0 Differential Comment MANUAL DIFFERENTIAL WBC Morphology NORMAL APPEARANCE Platelet Estimate NORMAL (130-450,000) Platelet Morphology NORMAL APPEARANCE RBC Morph Micro Appear NORMAL APPEARANCE Sodium Potassium Chloride Carbon Dioxide Anion Gap BUN Creatinine Estimated GFR (MDRD) Glucose Calcium Magnesium Total Bilirubin AST ALT Alkaline Phosphatase Troponin I High Sens 4.2 B-Natriuretic Peptide Total Protein Albumin Globulin Albumin/Globulin Ratio Lipase TSH Urine Color YELLOW Urine Clarity CLEAR Urine pH 7.0 Ur Specific [place] 1.010 Urine Protein NEGATIVE Urine Glucose (UA) NEGATIVE Urine Ketones NEGATIVE Urine Occult Blood NEGATIVE Urine Nitrite NEGATIVE Urine Bilirubin NEGATIVE Urine Urobilinogen 0.2 (NORMAL) Ur Leukocyte Esterase NEGATIVE Ur Microscopic Review NOT INDICATED Urine Culture Comments NOT INDICATED Nasal Adenovirus (PCR) Nasal B. parapertussis DNA (PCR) Nasal Coronavir 229E PCR Nasal Coronavir HKU1 PCR Nasal Coronavir NL63 PCR Nasal Coronavir OC43 PCR Nasal Enterovir/Rhinovir PCR Nasal Influenza B PCR Nasal Influenza A PCR Nasal Parainfluen 1 PCR Nasal Parainfluen 2 PCR Nasal Parainfluen 3 PCR Nasal Parainfluen 4 PCR Nasal RSV (PCR) Nasal B.pertussis DNA PCR Nasal C.pneumoniae (PCR) Chetan Human Metapneumo PCR Nasal M.pneumoniae (PCR) Nasal SARS-CoV-2 (PCR) Ethyl Alcohol 08/03/21 08/03/21 08/03/21 21:43 21:43 21:43 WBC RBC Hgb Hct MCV MCH MCHC RDW Plt Count MPV Neut # (Auto) Lymph # (Auto) [place] # (Auto) Eos # (Auto) Baso # (Auto) Absolute Nucleated RBC Total Counted Band Neuts % (Manual) Abnorm Lymph % (Manual) Nucleated RBC % Neutrophils # (Manual) Lymphocytes # (Manual) Monocytes # (Manual) Eosinophils # (Manual) Basophils # (Manual) Differential Comment WBC Morphology Platelet Estimate Platelet Morphology RBC Morph Micro Appear Sodium Potassium Chloride Carbon Dioxide Anion Gap BUN Creatinine Estimated GFR (MDRD) Glucose Calcium Magnesium 2.2 Total Bilirubin AST ALT Alkaline Phosphatase Troponin I High Sens B-Natriuretic Peptide 21 Total Protein Albumin Globulin Albumin/Globulin Ratio Lipase TSH 6.14 H Urine Color Urine Clarity Urine pH Ur Specific [place] Urine Protein Urine Glucose (UA) Urine Ketones Urine Occult Blood Urine Nitrite Urine Bilirubin Urine Urobilinogen Ur Leukocyte Esterase Ur Microscopic Review Urine Culture Comments Nasal Adenovirus (PCR) Nasal B. parapertussis DNA (PCR) Nasal Coronavir 229E PCR Nasal Coronavir HKU1 PCR Nasal Coronavir NL63 PCR Nasal Coronavir OC43 PCR Nasal Enterovir/Rhinovir PCR Nasal Influenza B PCR Nasal Influenza A PCR Nasal Parainfluen 1 PCR Nasal Parainfluen 2 PCR Nasal Parainfluen 3 PCR Nasal Parainfluen 4 PCR Nasal RSV (PCR) Nasal B.pertussis DNA PCR Nasal C.pneumoniae (PCR) Chetan Human Metapneumo PCR Nasal M.pneumoniae (PCR) Nasal SARS-CoV-2 (PCR) Ethyl Alcohol < 5.0 08/03/21 08/03/21 21:43 23:21 WBC RBC Hgb Hct MCV MCH MCHC RDW Plt Count MPV Neut # (Auto) Lymph # (Auto) [place] # (Auto) Eos # (Auto) Baso # (Auto) Absolute Nucleated RBC Total Counted Band Neuts % (Manual) Abnorm Lymph % (Manual) Nucleated RBC % Neutrophils # (Manual) Lymphocytes # (Manual) Monocytes # (Manual) Eosinophils # (Manual) Basophils # (Manual) Differential Comment WBC Morphology Platelet Estimate Platelet Morphology RBC Morph Micro Appear Sodium 143 Potassium 3.8 Chloride 104 Carbon Dioxide 27 Anion Gap 12.0 BUN 12 Creatinine 0.6 Estimated GFR (MDRD) 102 Glucose 134 H Calcium 9.4 Magnesium Total Bilirubin 0.6 AST 29 ALT 33 Alkaline Phosphatase 76 Troponin I High Sens B-Natriuretic Peptide Total Protein 7.5 Albumin 4.4 Globulin 3.1 Albumin/Globulin Ratio 1.4 Lipase 38 TSH Urine Color Urine Clarity Urine pH Ur Specific [place] Urine Protein Urine Glucose (UA) Urine Ketones Urine Occult Blood Urine Nitrite Urine Bilirubin Urine Urobilinogen Ur Leukocyte Esterase Ur Microscopic Review Urine Culture Comments Nasal Adenovirus (PCR) NOT DETECTED Nasal B. parapertussis DNA (PCR) NOT DETECTED Nasal Coronavir 229E PCR NOT DETECTED Nasal Coronavir HKU1 PCR NOT DETECTED Nasal Coronavir NL63 PCR NOT DETECTED Nasal Coronavir OC43 PCR NOT DETECTED Nasal Enterovir/Rhinovir PCR NOT DETECTED Nasal Influenza B PCR NOT DETECTED Nasal Influenza A PCR NOT DETECTED Nasal Parainfluen 1 PCR NOT DETECTED Nasal Parainfluen 2 PCR NOT DETECTED Nasal Parainfluen 3 PCR NOT DETECTED Nasal Parainfluen 4 PCR NOT DETECTED Nasal RSV (PCR) NOT DETECTED Nasal B.pertussis DNA PCR NOT DETECTED Nasal C.pneumoniae (PCR) NOT DETECTED Chetan Human Metapneumo PCR NOT DETECTED Nasal M.pneumoniae (PCR) NOT DETECTED Nasal SARS-CoV-2 (PCR) NOT DETECTED Ethyl Alcohol - Rads (name of study) chest xray Radiology: Prelim report reviewed (no acute process), See rad report PD MEDICAL DECISION MAKING - ED course Complexity details: reviewed results (chest xray clear, normal BNP and Trop. PERC negative. Wells score 0. not alcohol drinker. Lytes good. ), re-evaluated patient (heart rate slows to about 110-120 with IV meds but then creeping back up. Given repeat dosing. Patient comfortable. ), considered differential (apparently new onset afib with RVR, though has had some brief symptoms the past couple weeks, so potential for longer duration. Will go for rate control initially. ), d/w patient ED course: Her peripheral IV is working for fluids and meds but is not size enough for angio, which Hospitalist is wanting to do. Dr. Arteaga is asking for central line. I talked with the patient about this and she declined it ("not sure about it, sounds scary"). I described it and she is still not certain, so di not place central line. Patient to the floor with good working peripheral for medications. Departure - Departure Disposition: ED Place in Observation Clinical Impression: New onset a-fib, Atrial fibrillation with rapid ventricular response Condition: Stable Record reviewed to determine appropriate education?: Yes Discharge Date/Time: 08/04/21 01:01
[2021-08-03 20:58] LABS: BASOPHILS % (AUTO) 0.8 %; EOSINOPHILS % (AUTO) 12.8 %; HCT - HEMATOCRIT 44.5 % (37.0-47.0); HGB - HEMOGLOBIN 14.3 g/dL (12.0-16.0); LYMPHOCYTES % (AUTO) 23.7 %; MEAN CORPUSCULAR HEMOGLOBIN 29.8 pg (27.0-31.0); MEAN CORPUSCULAR HGB CONC 32.1 g/dL (32.0-36.0); MEAN CORPUSCULAR VOLUME 92.7 fL (81.0-99.0); MEAN PLATELET VOLUME 9.7 fL (7.9-10.8); MONOCYTES % (AUTO) 9.4 %; NEUTROPHILS % (AUTO) 53.1 %; PLT - PLATELET COUNT 378 10^3/uL (130-450); RED CELL DISTRIBUTION WIDTH 13.7 % (12.0-15.0); WHITE BLOOD COUNT 11.6 x10^3/uL (4.8-10.8)
[2021-08-03 21:02] LABS: ABNORMAL LYMPHS % (MANUAL) 0 %; BAND NEUTROPHILS % (MANUAL) 0 %
[2021-08-03] MEDS ORDERED: diltiaZEM INJ 5 MG/ML VIAL IVP STA ×3 (21:02→23:24)
[2021-08-03] MEDS ORDERED: SODIUM CHLORIDE 0.9% 1,000 ML IV STA (21:02)
[2021-08-03 21:13] LABS: DIFFERENTIAL COMMENT MANUAL DIFFERENTIAL; EOSINOPHILS # (MANUAL) 1.3 10^3/uL (0-0.7); LYMPHOCYTES # (MANUAL) 2.3 10^3/uL (1.5-3.5); LYMPHOCYTES % (MANUAL) 20 %; MONOCYTES # (MANUAL) 0.9 10^3/uL (0.0-1.0); NEUTROPHILS # (MANUAL) 7.1 10^3/uL (1.5-6.6); PLATELET ESTIMATE, MANUAL NORMAL (130-450,000) (NORMAL); PLATELET MORPHOLOGY NORMAL APPEARANCE (NORMAL); RBC MORPHOLOGY (MULTIPLE) NORMAL APPEARANCE (NORMAL); WBC MORPHOLOGY (MULTIPLE) NORMAL APPEARANCE (NORMAL)
[2021-08-03 21:24] LABS: BILIRUBIN,URINE NEGATIVE (NEGATIVE); GLUCOSE, URINE (UA) NEGATIVE (NEGATIVE); KETONES,URINE (UA) NEGATIVE (NEGATIVE); LEUKOCYTE ESTERASE, URINE NEGATIVE (NEGATIVE); NITRITE,URINE NEGATIVE (NEGATIVE); OCCULT BLOOD,URINE NEGATIVE (NEGATIVE); PROTEIN,URINE NEGATIVE (NEGATIVE); UROBILINOGEN,URINE 0.2 (NORMAL) E.U./dL (NORMAL)
[2021-08-03 21:30] LABS: CLARITY,URINE CLEAR (CLEAR)
[2021-08-03 22:01] LABS: ETOH - ETHANOL < 5.0 mg/dL; MAGNESIUM 2.2 mg/dL (1.7-2.8)
[2021-08-03 22:11] LABS: ALBUMIN 4.4 g/dL (3.2-5.5); ALBUMIN/GLOBULIN RATIO 1.4 (1.0-2.2); BILIRUBIN,TOTAL 0.6 mg/dL (0.2-1.0); CALCIUM 9.4 mg/dL (8.5-10.3); CREATININE 0.6 mg/dL (0.4-1.0); POTASSIUM 3.8 mmol/L (3.5-5.0); TOTAL PROTEIN 7.5 g/dL (6.7-8.2)
--- NOTE | 2021-08-03 22:11 | XRAY Report ---
PROCEDURE: Chest 1 View X-Ray INDICATIONS: chest pain TECHNIQUE: One view of the chest was acquired. COMPARISON: None FINDINGS: Surgical changes and devices: None. Lungs and pleura: No pleural effusions or pneumothorax. Mild perihilar opacity bilaterally. Mediastinum: Mediastinal contours appear normal. Heart size is normal. Bones and chest wall: No suspicious bony lesions. Overlying soft tissues appear unremarkable. IMPRESSION: Mild bilateral pneumonia. Reviewed by: Amairani Arcso MD on 08/03/2021 10:10 PM PDT Approved by: Amairani Arcos MD on 08/03/2021 10:10 PM PDT Station ID: [id number]
[2021-08-03] MEDS ORDERED: oxyCODONE 5 MG TABLET PO PRN (23:31)
[2021-08-03] MEDS ORDERED: SODIUM CHLORIDE FLUSH 0.9% 10 ML SYRINGE IVP PRN (23:31)
[2021-08-03] MEDS ORDERED: ONDANSETRON 4 MG/2 ML VIAL IVP PRN (23:31)
[2021-08-03] MEDS ORDERED: ACETAMINOPHEN 325 MG TABLET PO PRN (23:31)
[2021-08-03] MEDS ORDERED: ONDANSETRON ODT 4 MG TABLET TL PRN (23:31)
--- NOTE | 2021-08-03 23:43 | HISTORY & PHYSICAL EXAMINATION ---
Chief Complaint - Chief Complaint Chief Complaint: Thumping heart rate History of Present Illness - Admitted From Admitted From:: Home via EMS - History Obtained From Records Reviewed: [facility] History obtained from: Patient and Dr. Oseguera Exam Limitations: None - History of Present Illness HPI Comment/Other: This patient is regarded as a healthy patient and [place]. [place] in January of this year, mechanical fall, no loss of consciousness, and has been seen multiple, multiple, multiple times for symptoms of [place] Through her primary care provider she is also been seen in follow-up and been seen by neurology. CT of head and MRI have been negative. Complaints consist of ringing in her ears, hearing music in her right ear, dizziness, blurred vision, problems with memory, numbness and tingling. Today she called EMS because she felt like her heart was "thumping away". In the past she describes fleeting episodes of palpitations but never sustained. She states she's had hard thumping of 1-2 beats for decades. 3 years ago had increased frequency of occurence for about a year then it went away. This last year she had a slight episode for a day off and on then nothing for 3 months. today's episode is by far the worst feeling she has had. Mainly because it didn't go away after 1-2 thumps and lasted more than 10 minutes so she called an ambulance. There is no chest pain, shortness of breath. No jaw pain no nausea, no left arm pain with this. She has not been sedentary. She has no recent travel. She is not on hormone replacement therapy. In the emergency room temperature was 36.3. Heart rate was 125 and irregular. Blood pressure 157/90. Respirations 13 and 98% on room air. Telemetry documents atrial fibrillation. Her physical exam was essentially normal with Dr. Oseguera. Other than the irregularly irregular heart rate. White cell count is mildly elevated 11.6. Hemoglobin 14.3. Urinalysis is negative. Troponin is 4.2. TSH is 6.14. Alcohol level less than 5. Chest x-ray shows mild perihilar opacities bilaterally. The radiologist is interpreting this is mild bilateral pneumonia. Emergency room provider is asking that we place this patient in observation for new onset atrial fibrillation. With his presentation he was not aware of the radiology interpretation of bilateral pneumonia. History - Past Medical History Cardiovascular: reports: Hypertension Respiratory: reports: None Neuro: reports: Head injury Endocrine/Autoimmune: reports: None GI: reports: None OXIDATION ENGINEER: reports: Other () : reports: None HEENT: reports: None Psych: reports: None Musculoskeletal: reports: None Derm: reports: Other (Multiple, small surgeries for skin cancer removal) MRSA Hx?: No - Past Surgical History Derm: reports: Skin cancer surgery - Family & Social History Family History Comment/Other: Mom is in her 90s and lives in SNF in [place] due to recent hip fx and subsequent lack of mobility. Has HTN. Dad of [place] age 77. 2 sisters. Both are healthy. 1 son is healthy. 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 She is selling her house. Has realized that living on [facility] is not convenient for someone who may have a medical illness and having to come up to [place]. She is moving to [place] to be closer to her sister and her mother. She is a non-smoker. Never did. Nondrinker. Never had a problem with alcohol. . 1 son lives in [place] - Substance History Use: Uses substance without health or social issues: NONE Abuse: Recurrent use of substance despite neg consequences: NONE Dependence: Experiences withdrawal or developed tolerances: NONE - POLST Patient has POLST: No POLST Status: Full Code Meds/Allgy - Allergies Allergies/Adverse Reactions: Allergies Allergy/AdvReac Type Severity Reaction Status Date / Time Penicillins AdvReac Hives Verified 08/04/21 00:18 Sulfa (Sulfonamide AdvReac Hives Verified 08/04/21 00:18 Antibiotics) Review of Systems - Constitutional Constitutional: denies: Fatigue, Fever, Chills, Malaise - Eyes Eyes: reports: Blurred vision, Vision loss. denies: Pain, Irritation, Amaurosis - Ears, Nose & Throat Ears, Nose & Throat: reports: Tinnitus, Vertigo. denies: Ear pain, Hearing loss, Hearing aids, Nasal obstruction, Nasal congestion, Postnasal drainage, Sore throat, Hoarseness - Cardiovascular Cariovascular: reports: Palpitations, Lightheadedness. denies: Irregular heart rate, Chest pain, Edema, Syncope, Exertional dyspnea, Decr. exercise tolerance, Orthopnea - Respiratory Respiratory: denies: Cough, Sputum production, Wheezing, Snoring, Hemoptysis, Orthopnea, SOB at rest - Gastrointestinal Gastrointestinal: denies: Abdominal pain, Abdominal distention, Constipation, Diarrhea, Change in bowel habits - Genitourinary Genitourinary: denies: Dysuria, Frequency, Urgency, Hematuria - Musculoskeletal Musculoskeletal: denies: Muscle pain, Back pain, Muscle aches, Stiffness - Integumentary Integumentary: reports: Rash (this last summer, red dots in her arm pit and on her arm) - Neurological Neurological: reports: Headache, Dizziness, Memory problems, Other (hearing music that isn't there). denies: General weakness, Focal weakness - Psychiatric Psychiatric: denies: Depression, Anxiety, Suicidal - Endocrine Endocrine: denies: Polyuria, Polydypsia, Polyphagia, Intolerance to cold - Hematologic/Lymphatic Hematologic/Lymphatic: denies: Anemia, Bruising, Petechiae Prior Level of Functionality: Has not been able to work since her concussion. Does not use a cane or a walker. Still drives a car. Lives alone. Moving back to [place], selling her house. Exam - Vital Signs Reviewed Vital Signs: Yes Vital Signs: Vital Signs x48h Temp Pulse Resp BP Pulse Ox 08/03/21 23:35 92 17 119/75 100 08/03/21 23:34 95 21 124/64 100 08/03/21 23:33 98 16 129/112 H 08/03/21 23:22 123 H 13 161/92 H 100 08/03/21 22:51 119 H 14 146/84 H 100 08/03/21 22:09 146/101 H 08/03/21 21:55 149/121 H 08/03/21 21:50 144/92 H 08/03/21 21:30 165/78 H 08/03/21 21:27 150/74 H 08/03/21 21:25 123 H 173/122 H 08/03/21 21:18 130 H 167/106 H 08/03/21 21:02 141 H 13 167/106 H 99 08/03/21 20:28 36.3 C L 125 H 13 157/90 H 98 - Physical Exam General Appearance: positive: No acute distress, Alert, Other (nonstop slightly pressured speech, anxious ("is this serious, can I , why do I need all of this" in the midst of fixation with her postconcussive symptoms being repetitively described)) Eyes Bilateral: positive: PERRL, EOMI ENT: positive: Pharynx nml, No signs of dehydration Neck: positive: No JVD. negative: Stiff neck Respiratory: positive: No respiratory distress. negative: Wheezes, Rales, Rhonchi Cardiovascular: positive: Irregularly irregular. negative: Systolic murmur, Gallop/S4, Friction rub Peripheral Pulses: positive: 1+ Abdomen: positive: Non-tender, No organomegaly, Nml bowel sounds, No distention Skin: positive: Warm, Dry. negative: Diaphoresis, Pallor Extremities: positive: Non-tender, Full ROM, No pedal edema. negative: Fausto's sign/cords Neurologic/Psychiatric: positive: Oriented x3, CN's nml (2-12), Motor nml Conclusion/Plan - Problem List (1) New onset a-fib Conclusion/Plan: New onset atrial fibrillation differential diagnosis of [place] has been ruled out with a normal troponin. TSH is subclinically hypothyroid. Possible cause could be "pneumonia" seen on chest x-ray. I suspect that D-dimer will be high because of inflammatory response. Plan: Observation status Rate control with low-dose beta-yahir Her chads vas 2 score is one-point. She is considered a low moderate risk and should consider antiplatelet or anticoagulation. Depending on CTA report that will determine which. Abnormal chest x-ray, I will go ahead and follow through with a CT of the chest with pulmonary angiogram After the order was put in for CTA I discussed with Dr. Oseguera to please get an EJ since the home appliance tech requested a better IV access than the peripheral hand/wrist IVs and nursing was unable to do antecubital. Dr. Oseguera spoke to the patient who states she did not understand why better access was needed and she declined an EJ. As such the patient was sent to the floor. I explained why I was looking for pulmonary emboli in the workup of pulmonary emboli and she agreed to get venous access. I rediscussed with home appliance tech and better access was still required for the dye infusion. I left a message for Dr. Oseguera but he was with patients. I called again at 02:28, he was occupied with 2 patients and requested that I delay the CT until later in the morning and for me to please ask the morning staff to place access. I made clear with the home appliance tech that the study was still needed and he asked that I cancel the order to 08/03 and reschedule for 08/04. I will start Eliquis. (2) Abnormal chest xray Conclusion/Plan: She has no symptoms of cough, fever, chest congestion. No chest pain. She is not hypoxic. White cell count is mildly elevated. This may be technique related and interpreted as a pneumonia. Plan: CT of the chest for evaluation of possible pneumonia as well as pulmonary emboli (3) Postconcussive syndrome Conclusion/Plan: With multiple, multiple visits to walk-in clinic and ER. It is still the topic of conversation for this chadd lady. Will forward a copy of this history and physical to her primary care provider who is Dr.Lekha Almita Rome associated with the [facility]. I explained that if she is still disabled and unable to return to work, that maybe a NeuroPsychological Evaluation may help quantify her deficit. - Lab Results Lab results reviewed: Yes Fish Bones: 08/03/21 20:45 08/03/21 21:43 - Diagnostic Imaging Results Diagnostic Imaging Results: positive: Final report reviewed
[2021-08-03] MEDS ORDERED: IOVERSOL 320 100 ML VIAL IVP ONE (23:45)
[2021-08-04 00:25] LABS: B. PARAPERTUSSIS- RESP PCR PAN NOT DETECTED; B. PERTUSSIS- RESP PCR PANEL NOT DETECTED; C. PNEUMONIAE- RESP PCR PANEL NOT DETECTED; CORONAVIRUS 229E-RESP PCR NOT DETECTED; CORONAVIRUS HKU1-RESP PCR NOT DETECTED; CORONAVIRUS NL63-RESP PCR NOT DETECTED; CORONAVIRUS OC43-RESP PCR NOT DETECTED; HUMAN METAPNEUMOVIRUS NOT DETECTED; INFLUENZA A- RESP PCR PANEL NOT DETECTED; INFLUENZA B - RESP PCR PANEL NOT DETECTED; M. PNEUMONIAE- RESP PCR PANEL NOT DETECTED; PARAINFLUENZA VIRUS 1 NOT DETECTED; PARAINFLUENZA VIRUS 2 NOT DETECTED; PARAINFLUENZA VIRUS 3 NOT DETECTED; PARAINFLUENZA VIRUS 4 NOT DETECTED; RHINOVIRUS/ENTEROVIRUS NOT DETECTED; RSV- RESP PCR PANEL NOT DETECTED; SARS-CoV-2 -RESP PCR PANEL NOT DETECTED
[2021-08-04] MEDS: SODIUM CHLORIDE FLUSH 0.9% 10 ML SYRINGE IVP SCH ×2 (01:40→14:40)
[2021-08-04] MEDS: METOPROLOL SUCCINATE 25 MG TABLET PO SCH ×2 (02:22→09:30)
[2021-08-04] MEDS: APIXABAN 5 MG TABLET PO SCH ×2 (03:54→09:30)
[2021-08-04 08:34] LABS: BASOPHILS # (AUTO) 0.1 10^3/uL (0.0-0.1); BASOPHILS % (AUTO) 0.5 %; EOSINOPHILS # (AUTO) 0.4 10^3/uL (0.0-0.7); EOSINOPHILS % (AUTO) 4.6 %; HCT - HEMATOCRIT 41.8 % (37.0-47.0); HGB - HEMOGLOBIN 13.8 g/dL (12.0-16.0); LYMPHOCYTES # (AUTO) 1.8 10^3/uL (1.5-3.5); LYMPHOCYTES % (AUTO) 18.1 %; MEAN CORPUSCULAR HEMOGLOBIN 30.5 pg (27.0-31.0); MEAN CORPUSCULAR VOLUME 92.5 fL (81.0-99.0); MEAN PLATELET VOLUME 9.3 fL (7.9-10.8); MONOCYTES # (AUTO) 0.8 10^3/uL (0.0-1.0); MONOCYTES % (AUTO) 8.3 %; NEUTROPHILS # (AUTO) 6.6 10^3/uL (1.5-6.6); NEUTROPHILS % (AUTO) 68.2 %; PLT - PLATELET COUNT 365 10^3/uL (130-450); RED BLOOD COUNT 4.52 10^6/uL (4.20-5.40); RED CELL DISTRIBUTION WIDTH 13.7 % (12.0-15.0); WHITE BLOOD COUNT 9.7 x10^3/uL (4.8-10.8)
[2021-08-04 08:41] LABS: CALCIUM 8.8 mg/dL (8.5-10.3); CREATININE 0.5 mg/dL (0.4-1.0)
[2021-08-04] MEDS ORDERED: APIXABAN 5 MG TABLET PO SCH (09:00)
--- NOTE | 2021-08-04 12:06 | PHARMACY PROGRESS NOTE ---
- Best Possible Medication History Admit Date and Time: 08/03/21 2572 Processed by: Pharmacy Medication History completed: Yes Patient Interview: Completed Secondary Source(s): Pharmacy records, Insurance records As the person ultimately responsible for medication therapy, providers are able to order a medication from an existing home medication list in [facility] via the "Reconcile Routine" prior to Confirmation of that medication by network support administrator. Such practice is discouraged except when the physician, in their clinical judgment, deems that a medical need exists for a medication without regard to previous use.
--- NOTE | 2021-08-04 13:54 | Discharge Plan ---
Discharge Plan Problem Reviewed?: Yes Disposition: Home, Self Care Condition: Stable Prescriptions: Apixaban [Eliquis] 5 mg PO BID 30 Days #60 tablet Metoprolol Succinate [Toprol Xl] 25 mg PO DAILY #30 tablet Diet: Regular Activity Restrictions: Activity as Tolerated Shower Restrictions: No (fall precaution) Instruction Topics: Atrial Fibrillation, Metoprolol tablets, Apixaban oral tablets Health Concerns: atrial Fibrillation Plan of Treatment: You were found to have a new atrial fibrillation. After he was given metoprolol, your heart rate is controlled and your symptoms are resolved. you are also prescribed Eliquis Blood thinner. You may follow-up with your PCP in 1 week to Manage your new atrial fibrillation as we discussed. You medications are sent to your pharmacy Care Goals: Stabilization and improvement of your medical conditions Assessment: Discussed the care plan with you, answered your questions, you understand and agreed. Additional Instructions or Follow Up instructions: You may follow-up with your PCP in 1 week. Should your symptoms return or worse, you may present to ER or call 911 for help. No Smoking: If you smoke, Please STOP! Call for help. Follow-up with: AJ QUISPE MD [Primary Care Provider] -
--- NOTE | 2021-08-04 14:16 | DISCHARGE SUMMARY ---
Discharge Summary Admit Date: 08/03/21 Discharge Date: 08/04/21 Discharging Provider: Wiley Pereira Primary Care Provider: Rehana Long Condition at Discharge: Stable Discharge Disposition: 01 Home, Self Care Discharge Facility Name: home - DIAGNOSES Discharge Diagnoses with Status of Each Condition: (1) New onset a-fib pt's HR is controlled. pt denies palpitation symptoms any more. D-dimer is less 200. pt denies chest pain, shortness of breath, cough, wheezing, fever, chill. Patient has no tachypnea, patient had 100% oxygen saturation on room air. Patient had 81 HR after Patient was given metoprolol For contorl of her atrial fibrillation. pt had [id number] score 2. Patient is prescribed metoprolol and Eliquis. Social work was consulted, Patient will pay 0 for her Eliquis medications (2) Postconcussive syndrome Conclusion/Plan: With multiple, multiple visits to walk-in clinic and ER. It is still the topic of conversation for this chadd lady. Will forward a copy of this history and physical to her primary care provider who is Dr.Lekha Amlita Rome associated with the [facility]. I explained that if she is still disabled and unable to return to work, that maybe a NeuroPsychological Evaluation may help quantify her deficit. (3)HTN stable. Patient is prescript of metoprolol - [facility] History of Present Illness: refer from Dr. Arteaga's HPI on 08/03/21 This patient is regarded as a healthy patient and is followed by a primary care provider on the [facility]. She fell in January of this year, mechanical fall, no loss of consciousness, and has been seen multiple, multiple, multiple times for symptoms of postconcussive disorder in the walk-in clinic on the [place]. Through her primary care provider she is also been seen in follow-up and been seen by neurology. CT of head and MRI have been negative. Complaints consist of ringing in her ears, hearing music in her right ear, dizziness, blurred vi deena, problems with memory, numbness and tingling. Today she called EMS because she felt like her heart was "thumping away". In the past she describes fleeting episodes of palpitations but never sustained. She states she's had hard thumping of 1-2 beats for decades. 3 years ago had increased frequency of occurence for about a year then it went away. This last year she had a slight episode for a day off and on then nothing for 3 months. today's episode is by far the worst feeling she has had. Mainly because it didn't go away after 1-2 thumps and lasted more than 10 minutes so she called an ambulance. There is no chest pain, shortness of breath. No jaw pain no nausea, no left arm pain with this. She has not been sedentary. She has no recent travel. She is not on hormone replacement therapy. In the emergency room temperature was 36.3. Heart rate was 125 and irregular. Blood pressure 157/90. Respirations 13 and 98% on room air. Telemetry documents atrial fibrillation. Her physical exam was essentially normal with Dr. Oseguera. Other than the irregularly irregular heart rate. White cell count is mildly elevated 11.6. Hemoglobin 14.3. Urinalysis is negative. Troponin is 4.2. TSH is 6.14. Alcohol level less than 5. Chest x-ray shows mild perihilar opacities bilaterally. The radiologist is interpreting this is mild bilateral pneumonia. Emergency room provider is asking that we place this patient in observation for new onset atrial fibrillation. With his presentation he was not aware of the radiology interpretation of bilateral pneumonia. - ALLERGIES Allergies/Adverse Reactions: Allergies Allergy/AdvReac Type Severity Reaction Status Date / Time Penicillins AdvReac Hives Verified 08/04/21 00:18 Sulfa (Sulfonamide AdvReac Hives Verified 08/04/21 00:18 Antibiotics) - MEDICATIONS Home Medications: Ambulatory Orders Medication Instructions Recorded Confirmed Apixaban [Eliquis] 5 mg PO BID 30 Days #60 tablet 08/04/21 Cholecalciferol (Vitamin D3) 1,000 unit PO DAILY 08/04/21 08/04/21 [Vitamin D3] Metoprolol Succinate [Toprol Xl] 25 mg PO DAILY #30 tablet 08/04/21 - PHYSICAL EXAM AT DISCHARGE General Appearance: positive: No acute distress, Alert. negative: Lethargic Eyes Bilateral: positive: Normal inspection, PERRL, No lid inflammation ENT: positive: ENT inspection nml, No signs of dehydration. negative: Purulent nasal drainage Neck: positive: Nml inspection, Trachea midline. negative: Thyromegaly, Trachea l deviation Respiratory: positive: Chest non-tender, No respiratory distress, Breath sounds nml. negative: Wheezes, Rales Cardiovascular: positive: Regular rate & rhythm, No murmur. negative: Tachycardia, Bradycardia, Systolic murmur, Diastolic murmur Peripheral Pulses: positive: 2+ Abdomen: positive: Non-tender, Nml bowel sounds, No distention. negative: Tenderness Back: positive: Nml inspection Skin: positive: Color nml, Warm, Dry. negative: Cyanosis Extremities: positive: Non-tender, Full ROM, Nml appearance. negative: Calf tenderness Neurologic/Psychiatric: positive: Oriented x3, Motor nml, Sensation nml, Mood/affect nml. negative: Weakness, Sensory loss, Facial droop, Slurred/abnml speech, Depressed mood/affect - LABS Result Diagrams: 08/04/21 08:26 08/04/21 08:26 - FOLLOW UP Follow Up: You were found to have a new atrial fibrillation. After he was given metoprolol, your heart rate is controlled and your symptoms are resolved. you are also prescribed Eliquis Blood thinner. You may follow-up with your PCP in 1 week to Manage your new atrial fibrillation as we discussed. You medications are sent to your pharmacy. You may follow-up with your PCP in 1 week. Should your symptoms return or worse, you may present to ER or call 911 for help. - TIME SPENT Time Spent in Discharge (Minutes): 30
[2021-08-04 15:45] VITALS: BP 121/89
== END 2021-08-04 16:10 | disposition home or self-care (01) ==
LOC: EDUNIT# → ED 20:13 → SUPCPDRO 20:13 → MS2 23:31
PROVIDERS: ADMIT Specialist; ATTEND Nurse Practitioner Gerontology
DX: I48.91 Unspecified atrial fibrillation (principal); F07.81 Postconcussional syndrome; H53.8 Other visual disturbances; H93.19 Tinnitus, unspecified ear; R42 Dizziness and giddiness; R41.3 Other amnesia; I10 Essential (primary) hypertension; Z20.822 Contact with and (suspected) exposure to COVID-19; Z91.81 History of falling; Z79.899 Other long term (current) drug therapy
CPT/HCPCS: 0202U; 36415; 71045; 80048; 80053; 80320; 81003; 83690; 83735; 83880; 84439; 84443; 84484; 85025; 85379; 93005; 93306; 96361; 96374; 96376; 99284; 99285; A9270; G0378; 81001; 87086

== ENCOUNTER 2021-08-05 03:21 | Outpatient (CLI) | payer BC | END 2021-08-05 03:22 | disposition EMS.NT | LOC: EMS 03:21 | DX: Z03.89 Encounter for observation for other suspected diseases and conditions ruled out (principal) ==

== ENCOUNTER 2021-08-05 10:43 | Outpatient (CLI) | payer BC | END 2021-08-05 10:44 | disposition EMS.NT | LOC: EMS 10:43 | DX: R20.2 Paresthesia of skin (principal) ==

== ENCOUNTER 2021-08-05 11:43 | Emergency (ER) | payer BC ==
[2021-08-05 11:52] VITALS: BP 157/93
--- NOTE | 2021-08-05 12:53 | ED Physician Documentation ---
History of Present Illness - Stated complaint Stated Complaint: LT CALF PX - Chief complaint Chief Complaint: Ext Problem - Additonal information Additional information: 61-year-old female presents emergency department for evaluation of acute left posterior leg pain that she noticed this morning. She is concerned she could have a blood clot in her leg. She was recently admitted to the hospital for new onset atrial fibrillation. She was discharged with appropriate rate control and is on Eliquis which she has filled and has been taking. Patient reports that 6 months ago she had a concussion. She also Reports that she is not medically knowledgeable and over worries about minor things. She has questions about what kinds of clots that she could develop with atrial fibrillation and what risk she has for blood clots in her leg. Review of Systems Constitutional: denies: Fever, Chills Eyes: reports: Reviewed and negative Nose: reports: Reviewed and negative Throat: reports: Reviewed and negative Cardiac: reports: Reviewed and negative Respiratory: reports: Reviewed and negative GI: reports: Reviewed and negative : reports: Reviewed and negative Skin: reports: Reviewed and negative Musculoskeletal: reports: Extremity pain Neurologic: reports: Reviewed and negative PD PAST MEDICAL HISTORY - Past Medical History Cardiovascular: Hypertension Respiratory: None Neuro: Head injury (6 months ago, with persistent headaches and trouble concentrating. Worse with exertion/activity. 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 : None HEENT: None Psych: None Musculoskeletal: None Derm: None - Past Surgical History Past Surgical History: Yes Derm: Skin cancer surgery - Present Medications Home Medications: Ambulatory Orders Medication Instructions Recorded Confirmed Apixaban [Eliquis] 5 mg PO BID 30 Days #60 tablet 08/04/21 Cholecalciferol (Vitamin D3) 1,000 unit PO DAILY 08/04/21 08/04/21 [Vitamin D3] Metoprolol Succinate [Toprol Xl] 25 mg PO DAILY #30 tablet 08/04/21 - Allergies Allergies/Adverse Reactions: Allergies Allergy/AdvReac Type Severity Reaction Status Date / Time Penicillins AdvReac Hives Verified 08/05/21 11:52 Sulfa (Sulfonamide AdvReac Hives Verified 08/05/21 11:52 Antibiotics) - Social History Does the pt smoke?: No Smoking Status: Never smoker Does the pt drink ETOH?: No Does the pt have substance abuse?: No - Immunizations Immunizations are current?: No Immunizations: Other immun not current - POLST Patient has POLST: No POLST Status: Full Code PD ED PE EXPANDED - General General: Alert - HEENT HEENT: Atraumatic - Eyes Eyes: PERRL, EOMI - Cardiac Cardiac: Irregularly irregular, Radial strong equal, Pedal strong equal, Cap refill < 2 sec - Respiratory Respiratory: Clear to ausultation dona. No: Distress, Labored - Abdomen Abdomen: Normal Bowel sounds. No: Tender to palpation - Extremities Extremities: Normal, Pedal Pulses Present. No: Deformity, Tenderness, Pedal edema bilateral, Right calf TTP/cord, Left calf TTP/cord - Neuro Neuro: Alert and Oriented X 3, CNII-XII intact, Normal gait, Normal finger nose, Normal speech - GCS Eye Opening: Spontaneous Motor: Obeys Commands Verbal: Oriented Total: 15 Results - Vitals Vitals: Vital Signs - 24 hr 08/05/21 11:47 Temperature 36.4 C L Heart Rate 87 Respiratory 18 Rate Blood Pressure 157/93 H O2 Saturation 98 Oxygen O2 Source Room air - Rads (name of study) US DVT Radiology: Final report received (No deep vein thrombosis identified) PD MEDICAL DECISION MAKING - ED course Complexity details: reviewed results, re-evaluated patient, d/w patient ED course: 61-year-old female here for acute left calf pain that she noticed this morning concerned she could have a blood clot. Was just discharged from the hospital yesterday after a new diagnosis of atrial fibrillation. She is on Eliquis. The ultrasound DVT today is negative for findings of thrombus. I did spend a fair amount of time at the bedside discussing with patient the risks of atrial fibrillation return precautions for concerns of stroke as well as the Eliquis and return precautions for concerns of bleeding. Departure - Departure Disposition: 01 Home, Self Care Clinical Impression: Pain of left calf, Anticoagulated Atrial fibrillation Qualifiers: Atrial fibrillation type: unspecified Qualified Code(s): I48.91 - Unspecified atrial fibrillation Condition: Stable Record reviewed to determine appropriate education?: Yes Comments: Marycarmen the ultrasound of your leg does not show a blood clot. You do have atrial fibrillation. This is where the upper chambers of your heart beat erratically. This does put you at risk to develop blood clots. These blood clots can travel to your brain and cause a stroke. To help reduce this risk you were started on an anticoagulant medication called Eliquis. Please continue to take the Eliquis as prescribed. Signs of a stroke include sudden slurred speech, droopy face, or sudden arm or leg weakness. Because you are taking a medication to help prevent clots if you have any sudden falls, trauma or strike your head violently you should return to the ER to ensure that there is no bruising or bleeding within your brain. If you develop bloody or black stools you should also return immediately to the ER. Otherwise continue close follow-up with your primary care provider.
--- NOTE | 2021-08-05 13:03 | Ultrasound Report ---
PROCEDURE: Duplex Ext Veins Left INDICATIONS: calf pain TECHNIQUE: Real-time imaging, as well as color and pulse Doppler interrogation, were performed of the lower extr emity deep veins from the inguinal ligament to the popliteal fossa. COMPARISON: None. FINDINGS: The deep veins are normally compressible, and free of intraluminal thrombus. Color and pu lse Doppler demonstrate normal phasic intraluminal flow. There is normal augmentation response to di stal compression maneuver. IMPRESSION: No evidence of left lower extremity deep venous thrombosis. Reviewed by: Jim Bhardwaj DO on 08/05/2021 12:02 PM [facility] Approved by: Jim Bhardwaj DO on 08/05/2021 12:02 PM [facility] Station ID: [id number]
== END 2021-08-05 13:14 | disposition home or self-care (01) ==
LOC: ED 11:43
DX: M79.662 Pain in left lower leg (principal); I48.91 Unspecified atrial fibrillation; Z79.01 Long term (current) use of anticoagulants; I10 Essential (primary) hypertension
CPT/HCPCS: 99282; 99283

== ENCOUNTER 2021-08-07 17:24 | Emergency (ER) | payer BC ==
--- NOTE | 2021-08-07 18:16 | ED Physician Documentation ---
History of Present Illness - Stated complaint Stated Complaint: BP ELEVATED - History obtained from History obtained from: Patient - History of Present Illness Timing: Today Pain level max: 0 Pain level now: 0 - Additonal information Additional information: 61-year-old female presents to the emergency department stating that she was feeling anxious at home today when she decided to check her blood pressure and found it to be over 150 systolic. She then began rapidly checking her blood pressure in succession and her blood pressure began to climb. Eventually the blood pressure was up to 180 systolic. She called the nurse advice line who recommended she come here for evaluation. Patient did not have any other symptoms. No vision changes, no focal neurological deficits, no chest pain, no shortness of breath. Nothing made it better or worse. She states she was recently started on metoprolol for atrial fibrillation. Did not have any palp itations today. 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 : None HEENT: None Psych: None Musculoskeletal: None Derm: None - Past Surgical History Past Surgical History: Yes Derm: Skin cancer surgery - Present Medications Home Medications: Ambulatory Orders Medication Instructions Recorded Confirmed Apixaban [Eliquis] 5 mg PO BID 30 Days #60 tablet 08/04/21 Cholecalciferol (Vitamin D3) 1,000 unit PO DAILY 08/04/21 08/04/21 [Vitamin D3] Metoprolol Succinate [Toprol Xl] 25 mg PO DAILY #30 tablet 08/04/21 - Allergies Allergies/Adverse Reactions: Allergies Allergy/AdvReac Type Severity Reaction Status Date / Time Penicillins AdvReac Hives Verified 08/07/21 17:26 Sulfa (Sulfonamide AdvReac Hives Verified 08/07/21 17:26 Antibiotics) - Social History Does the pt smoke?: No Smoking Status: Never smoker Does the pt drink ETOH?: No Does the pt have substance abuse?: No - Immunizations Immunizations are current?: No Immunizations: Other immun not current - POLST Patient has POLST: No POLST Status: Full Code PD ED PE NORMAL - Vitals Vital signs reviewed: Yes - General General: Alert and oriented X 3, No acute distress, Well developed/nourished - HEENT HEENT: Moist mucous membranes - Neck Neck: Supple, no meningeal sign, No JVD, No bruit - Cardiac Cardiac: RRR, Strong equal pulses - Respiratory Respiratory: No respiratory distress, Clear bilaterally - Abdomen Abdomen: Soft, Non tender, Non distended - Derm Derm: Warm and dry - Extremities Extremities: No edema - Neuro Neuro: Alert and oriented X 3 - Psych Psych: Normal mood, Normal affect Results - Vitals Vitals: Vital Signs - 24 hr 08/07/21 08/07/21 08/07/21 17:26 18:54 19:35 Temperature 36.5 C Heart Rate 90 76 79 Respiratory 16 14 18 Rate Blood Pressure 150/90 H 137/84 H 159/95 H O2 Saturation 98 97 98 Oxygen O2 Source Room air - EKG (time done) 1738 Rate: Rate (enter#) (80) Rhythm: NSR [place]: Normal Intervals: Normal HI QRS: Normal Ischemia: Normal ST segments PD MEDICAL DECISION MAKING - ED course Complexity details: considered differential, d/w patient ED course: Patient with asymptomatic hypertension. Blood pressure decreased on its own. We will have her continue her current medications and follow-up with her doctor for further care. Patient counseled regarding signs and symptoms for which I believe and urgent re-evaluation would be necessary. Patient with good understanding of and agreement to plan and is comfortable going home at this time This document was made in part using voice recognition software. While efforts are made to proofread this document, sound alike and grammatical errors may occur. Departure - Departure Disposition: Home, Self Care Clinical Impression: Hypertension Qualifiers: Hypertension type: unspecified Qualified Code(s): I10 - Essential (primary) hypertension Condition: Good Instructions: ED HTN Established Follow-Up: AJ QUISPE MD [Primary Care Provider] - As Needed Comments: Continue your current medications at home. Follow-up with your doctor for further care. Return if you develop chest pain, difficulty breathing, vision changes, numbness or tingling or any other new or worrisome symptoms. Discharge Date/Time: 08/07/21 19:20
[2021-08-07 19:36] VITALS: BP 159/95
== END 2021-08-07 19:20 | disposition home or self-care (01) ==
LOC: ED 17:24
DX: I10 Essential (primary) hypertension (principal)
CPT/HCPCS: 93005; 99283

== ENCOUNTER 2021-08-12 09:54 | Emergency (ER) | payer BC ==
[2021-08-12 10:05] VITALS: BP 151/84
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
--- NOTE | 2021-08-12 10:52 | CT Report ---
PROCEDURE: HEAD WO INDICATIONS: elequis head injury TECHNIQUE: Noncontrast 4.5 mm thick angled axial sections acquired from the foramen magnum to the vertex. For r adiation dose reduction, the following was used: automated exposure control, adjustment of mA and/or kV according to patient size. COMPARISON: 02/26/2021, 01/31/2021, 01/27/2021 FINDINGS: Image quality: There is streak artifact seen through the skull base. Motion artifact is noted. I mages were repeated, with some improvement. CSF spaces: Basal cisterns are patent. No extra-axial fluid collections. Ventricles are normal in size and shape. Brain: No midline shift. No intracranial masses or hemorrhage. Mohr-white matter interface is norm al. Skull and face: Calvarium and visualized facial bones are intact, without suspicious lesions. Sinuses: Visualized sinuses and mastoids are clear. IMPRESSION: No intracranial hemorrhage is seen. No significant intracranial abnormality is seen. Reviewed by: Jefe Armenta MD on 08/12/2021 9:51 AM [facility] Approved by: Jefe Armenta MD on 08/12/2021 9:51 AM [facility] Station ID: [id number]
== END 2021-08-12 11:26 | disposition home or self-care (01) ==
LOC: ED 09:54
DX: S06.0X0A Concussion without loss of consciousness, initial encounter (principal); W22.09XA Striking against other stationary object, initial encounter; Y93.89 Activity, other specified; Y92.810 Car as the place of occurrence of the external cause; I48.91 Unspecified atrial fibrillation; Z79.01 Long term (current) use of anticoagulants; I10 Essential (primary) hypertension
CPT/HCPCS: 99282; 99284